=== PATIENT | male | born 1985 | race Caucasian/White ===

== ENCOUNTER 2016-04-12 15:20 | Emergency (ER) | payer OTHER ==
[2016-04-12 15:35] VITALS: BP 126/74
[2016-04-12] MEDS ORDERED: Proparacaine 0.5% OPHTH.SOL* 15 ML BTL ONE (15:39)
[2016-04-12] MEDS ORDERED: Eye Irrigation Solution 30 ML BOTTLE ONE (15:39)
[2016-04-12] MEDS ORDERED: Fluorescein Sodium TOPICAL* 1 MG TEST ONE (15:39)
--- NOTE | 2016-04-12 15:43 | UC ---
Eye Complaint HPI - HPI Summary HPI Summary: complaint of left eye woke up this morning and his eye was stuck shut with discharger eye has turned red and ithcy eye feels slightly painful vision seems blurrier than usual denies any symptoms of URI - History of Current Complaint Chief Complaint: UCEye Stated Complaint: EYE COMPLAINT Time Seen by Provider: 04/12/16 15:23 Location of Injury: Conjunctiva Character: Dull Aggravating Factor(s): Nothing Alleviating Factor(s): Nothing Associated Signs And Symptoms: Positive: Drainage (Purulent) - Allergies/Home Medications Allergies/Adverse Reactions: Allergies Allergy/AdvReac Type Severity Reaction Status Date / Time Sulfa Antibiotics Allergy Anaphylatic Verified 04/12/16 15:27 Shock PMH/Surg Hx/FS Hx/Imm Hx Previously Healthy: Yes Endocrine History Of: Denies: Diabetes, Thyroid Disease Cardiovascular History Of: Denies: Cardiac Disorders, Hypertension Respiratory History Of: Denies: COPD, Asthma GI/ History Of: Denies: Gastroesophageal Reflux, Ulcer Psychological History Of: Reports: Anxiety - Surgical History Surgical History: Yes Surgery Procedure, Year, and Place: double mastectomy, ear tubes - Family History Known Family History: Positive: None, Unknown - unknown, pt is adopted., Cardiac Disease Negative: Diabetes - Social History Occupation: Employed Full-time Lives: With Family Alcohol Use: None Substance Use Type: None Substance Use Comment - Amount & Last Used: \\ Smoking Status (MU): Current Every Day Smoker Type: Cigarettes Amount Used/How Often: 1/2 PPD Household Exposure Type: Cigarettes Cessation Counseling: Patient Advised to Stop Review of Systems Constitutional: Negative Skin: Negative Eyes: Eye Redness ENT: Negative Respiratory: Negative Cardiovascular: Negative Gastrointestinal: Negative Genitourinary: Negative Motor: Negative Neurovascular: Negative Musculoskeletal: Negative Neurological: Negative Psychological: Negative All Other Systems Reviewed And Are Negative: Yes Physical Exam Triage Information Reviewed: Yes Appearance: No Pain Distress, Well-Nourished Vital Signs: Initial Vital Signs Temp 98.6 F 04/12/16 15:28 Pulse 80 04/12/16 15:28 Resp 18 04/12/16 15:28 BP 126/74 04/12/16 15:28 Pulse Ox 100 04/12/16 15:28 Vital Signs Reviewed: Yes Eyes: Positive: Conjunctiva Inflamed, Discharge, Other: - left eye ENT: Positive: Pharynx normal, TMs normal. Negative: Nasal congestion Neck: Positive: No Lymphadenopathy Respiratory: Positive: Lungs clear, Normal breath sounds, No respiratory distress Cardiovascular: Positive: RRR, No Murmur, Pulses Normal Neurological Exam: Normal Psychological Exam: Normal Skin Exam: Normal Procedures - Procedure Summary Procedure Summary: left eye observed under flouriscine - no foreign objects or abrasions observed Eye Complaint Course/Dx - Differential Dx/Diagnosis Differential Diagnosis/HQI/PQRI: Conjunctivitis, Corneal Abrasion Provider Diagnoses: conjunctivitis Discharge - Discharge Plan Condition: Stable Disposition: HOME Prescriptions: Ciprofloxacin 0.3% OPTH.MAURICIO* [Cipro 0.3% Opth*] 2 drop LEFT EYE Q4H #1 btl Patient Education Materials: Conjunctivitis (ED) Forms: *Work Release Referrals: Emily Hatfield PA [Primary Care Provider] - Additional Instructions: CONJUNCTIVITIS What is Conjunctivitis? Conjunctivitis is redness and swelling of the conjunctiva, the thin transparent layer that lines the inner eyelid and covers the white part of the eye. The three main types of conjunctivitis are infectious, allergic, and chemical. The infectious type, commonly called "pink eye," is caused by a contagious virus or by bacteria. Your body's allergies to pollen, cosmetics, animals or fabrics often bring on allergic conjunctivitis. Irritants like air pollution, noxious fumes and chlorine in swimming pools may produce the chemical form. Symptoms Might Include: More tearing Eye pain Redness in the eyes Gritty feeling in the eyes Itching of the eye Blurred vision Sensitivity to light Crusts that form on the eyelid overnight Treatment Recommendations: Use eye drops or ointment as directed. Do not rub or touch your eyes. Wash your hands frequently. Use cool compresses to relieve pain and itching. Prevention: Do not share eye make-up. Replace eye make-up frequently. Do not share towels, washcloths, etc. Do not share eye drops. Disinfect and handle contact lenses properly. Call Your Doctor or Return Here IF: Your symptoms worsen or do not improve in 3 to 4 days. You have problems with, or loss of, your vision. You have a significant increase in pain. You have any new symptoms that worry you.
== END 2016-04-12 16:11 | disposition home or self-care (01) ==
LOC: UCCORT 15:20
DX: H10.32 Unspecified acute conjunctivitis, left eye (principal); Z88.2 Allergy status to sulfonamides; F17.210 Nicotine dependence, cigarettes, uncomplicated
CPT/HCPCS: 99212; A9270-GY; G0463

== ENCOUNTER 2016-05-24 12:20 | Emergency (ER) | payer OTHER ==
[2016-05-24 12:35] VITALS: BP 128/74
--- NOTE | 2016-05-24 14:11 | RAD ---
HISTORY: Left fifth digit trauma COMPARISONS: None VIEWS: 3, Frontal, lateral, and oblique views of the fifth digit of the left foot FINDINGS: BONE DENSITY: Normal. BONES: There is no displaced fracture. JOINTS: There is no arthropathy. ALIGNMENT: There is no dislocation. SOFT TISSUES: Unremarkable. OTHER FINDINGS: None. IMPRESSION: NO ACUTE OSSEOUS INJURY. IF SYMPTOMS PERSIST, RECOMMEND REPEAT IMAGING.
--- NOTE | 2016-05-24 14:41 | UC ---
Lower Extremity/Ankle HPI - HPI Summary HPI Summary: LEFT PINKY-TOE INJURY, YESTERDAY STUBBED TOE AND PULLED A LITTLE BIT OF TOE NAIL OFF WITH INJURY. PAIN CONTINUES - History of Current Complaint Chief Complaint: UCLowerExtremity Stated Complaint: TOE INJURY Time Seen by Provider: 05/24/16 13:32 Hx Obtained From: Patient Onset/Duration: Sudden Onset, Lasting Days, Still Present Severity Initially: Moderate Severity Currently: Moderate Aggravating Factor(s): Standing, Ambulation Alleviating Factor(s): Rest Able to Bear Weight: Yes - Risk Factors Gout Risk Factors: Negative DVT Risk Factors: Negative Septic Arthritis Risk Factor: Negative - Allergies/Home Medications Allergies/Adverse Reactions: Allergies Allergy/AdvReac Type Severity Reaction Status Date / Time Sulfa Antibiotics Allergy Anaphylatic Verified 04/12/16 15:27 Shock PMH/Surg Hx/FS Hx/Imm Hx Previously Healthy: Yes Endocrine History Of: Denies: Diabetes, Thyroid Disease Cardiovascular History Of: Denies: Cardiac Disorders, Hypertension Respiratory History Of: Denies: COPD, Asthma GI/ History Of: Denies: Gastroesophageal Reflux, Ulcer Psychological History Of: Reports: Anxiety - Surgical History Surgical History: Yes Surgery Procedure, Year, and Place: double mastectomy, ear tubes - Family History Known Family History: Positive: None, Unknown - unknown, pt is adopted., Cardiac Disease Negative: Diabetes - Social History Occupation: Employed Full-time Lives: With Family Alcohol Use: None Substance Use Type: None Substance Use Comment - Amount & Last Used: \ Smoking Status (MU): Current Every Day Smoker Type: Cigarettes Amount Used/How Often: 1/2 PPD Household Exposure Type: Cigarettes Cessation Counseling: Patient Advised to Stop Review of Systems Constitutional: Negative Skin: Negative Eyes: Negative ENT: Negative Respiratory: Negative Cardiovascular: Negative Gastrointestinal: Negative Genitourinary: Negative Motor: Negative Neurovascular: Negative Musculoskeletal: Arthralgia, Myalgia Neurological: Negative Psychological: Negative All Other Systems Reviewed And Are Negative: Yes Physical Exam Triage Information Reviewed: Yes Appearance: Well-Appearing, Well-Nourished, Pain Distress - MILD Vital Signs: Initial Vital Signs Temp 98.3 F 05/24/16 12:33 Pulse 78 05/24/16 12:33 Resp 16 05/24/16 12:33 BP 128/74 05/24/16 12:33 Pulse Ox 100 05/24/16 12:33 Vital Signs Reviewed: Yes Eye Exam: Normal ENT Exam: Normal ENT: Positive: Normal ENT inspection, Hearing grossly normal, Pharynx normal, TMs normal Dental Exam: Normal Neck exam: Normal Neck: Positive: Supple, Nontender, No Lymphadenopathy Respiratory Exam: Normal Respiratory: Positive: Chest non-tender, Lungs clear, Normal breath sounds, No respiratory distress, No accessory muscle use Cardiovascular Exam: Normal Cardiovascular: Positive: RRR, No Murmur, Pulses Normal Abdominal Exam: Normal Abdomen Description: Positive: Nontender, No Organomegaly Musculoskeletal Exam: Normal Musculoskeletal: Positive: Strength Intact, ROM Intact Neurological Exam: Normal Psychological Exam: Normal Skin: Positive: Other - LEFT 5TH TOE PARTIAL NAIL AVULSION TO MEDIAL ASPECT Lower Extremity Course/Dx - Differential Dx/Diagnosis Differential Diagnosis/HQI/PQRI: Fracture (Closed), Fracture (Open), Sprain, Strain Provider Diagnoses: LEFT FIFTH TOE PARTIAL NAIL AVULSION. LEFT FIFTH TOE CONTUSION/SPRAIN Discharge - Discharge Plan Condition: Stable Disposition: HOME Patient Education Materials: Foot Contusion (ED), Nail Avulsion (ED) Referrals: Emily Hatfield PA [Primary Care Provider] -
== END 2016-05-24 14:50 | disposition home or self-care (01) ==
LOC: UCEAST 12:20
DX: S90.222A Contusion of left lesser toe(s) with damage to nail, initial encounter (principal); W22.8XXA Striking against or struck by other objects, initial encounter; Y93.9 Activity, unspecified; Y92.9 Unspecified place or not applicable; Z88.2 Allergy status to sulfonamides; F17.210 Nicotine dependence, cigarettes, uncomplicated
CPT/HCPCS: 99212; G0463

== ENCOUNTER 2016-06-29 22:01 | Emergency (ER) | payer OTHER ==
[2016-06-29 22:07] VITALS: BP 138/74
[2016-06-29] MEDS ORDERED: Ibuprofen TAB* 600 MG PO ONE (22:17)
[2016-06-29] MEDS ORDERED: Cyclobenzaprine TAB* 10 MG PO ONE (22:18)
--- NOTE | 2016-06-29 22:29 | UC ---
Back Pain HPI - HPI Summary HPI Summary: 31 yo was at work today Holding a pot of oil was startled wrenched back pain right lower back radiates to right lateral knee radiates to right scapula no bowel or bladder dysfunction happened 45 minutes [employer] - History of Current Complaint Chief Complaint: UCBackPain Stated Complaint: BACK INJURY Time Seen by Provider: 06/29/16 22:10 Hx Obtained From: Patient Onset/Duration: Gradual Onset Timing: Lasting Minutes Severity Initially: Severe Severity Currently: Moderate Pain Intensity: 6 Pain Scale Used: 0-10 Numeric Back Pain: Is Diffuse Character: Aching, Throbbing, Spasmodic Aggravating: Movement, Lifting, Bending Alleviating: Rest Associated Signs And Symptoms: Positive: Negative Related History: Occupational Injury - Allergies/Home Medications Allergies/Adverse Reactions: Allergies Allergy/AdvReac Type Severity Reaction Status Date / Time Sulfa Antibiotics Allergy Anaphylatic Verified 06/29/16 22:08 Shock PMH/Surg Hx/FS Hx/Imm Hx Previously Healthy: Yes Endocrine History Of: Denies: Diabetes, Thyroid Disease Cardiovascular History Of: Denies: Cardiac Disorders, Hypertension Respiratory History Of: Denies: COPD, Asthma GI/ History Of: Denies: Gastroesophageal Reflux, Ulcer Psychological History Of: Reports: Anxiety - Surgical History Surgical History: Yes Surgery Procedure, Year, and Place: double mastectomy, ear tubes - Family History Known Family History: Positive: None, Unknown - unknown, pt is adopted., Cardiac Disease Negative: Diabetes - Social History Alcohol Use: None Substance Use Type: None Substance Use Comment - Amount & Last Used: \ Smoking Status (MU): Current Every Day Smoker Type: Cigarettes Amount Used/How Often: 1/2 PPD Household Exposure Type: Cigarettes Review of Systems Constitutional: Negative Skin: Negative Eyes: Negative ENT: Negative Respiratory: Negative Cardiovascular: Negative Gastrointestinal: Negative Genitourinary: Negative Motor: Negative Neurovascular: Negative Musculoskeletal: Myalgia Neurological: Negative Psychological: Negative All Other Systems Reviewed And Are Negative: Yes Physical Exam Triage Information Reviewed: Yes Appearance: Well-Appearing, No Pain Distress, Well-Nourished Vital Signs: Initial Vital Signs Temp 98.5 F 06/29/16 22:03 Pulse 82 06/29/16 22:03 Resp 18 06/29/16 22:03 BP 138/74 06/29/16 22:03 Pulse Ox 98 06/29/16 22:03 Vital Signs Reviewed: Yes Eyes: Positive: Conjunctiva Clear ENT: Positive: Hearing grossly normal. Negative: Nasal congestion, Nasal drainage, Trismus, Muffled/hoarse voice Neck: Positive: Supple, Nontender Respiratory: Positive: Lungs clear, Normal breath sounds, No respiratory distress Cardiovascular: Positive: RRR, No Murmur, Pulses Normal Musculoskeletal: Positive: Strength Intact, ROM Intact Neurological: Positive: Alert, Other: - DTRs equal/(-) SLR, limited ROM Psychological Exam: Normal Skin Exam: Normal Back Pain Course/Dx - Differential Dx/Diagnosis Provider Diagnoses: acute lumbar strain with non discogenic sciatica Discharge - Discharge Plan Condition: Stable Disposition: HOME Prescriptions: Cyclobenzaprine TAB* [Flexeril TAB*] 5 mg PO TID PRN #21 tab PRN Reason: Spasms Ibuprofen TAB* [Motrin TAB*] 600 mg PO QID PRN #40 tab PRN Reason: Pain Patient Education Materials: Low Back Strain (ED) Forms: *Work Release Referrals: Emily Hatfield PA [Primary Care Provider] - Additional Instructions: recheck in 5-7 days if not better recheck sooner for new or worsening symptoms Images Front/Back of Body, Lg ([place]): 1 - hurts here 2 - radiates here 3 - radiates here
== END 2016-06-29 22:30 | disposition home or self-care (01) ==
LOC: UCEAST 22:01
DX: S39.012A Strain of muscle, fascia and tendon of lower back, initial encounter (principal); X50.1XXA Overexertion from prolonged static or awkward postures, initial encounter; Y93.89 Activity, other specified; Y92.89 Other specified places as the place of occurrence of the external cause; Y99.0 Civilian activity done for income or pay; Z88.2 Allergy status to sulfonamides; F17.210 Nicotine dependence, cigarettes, uncomplicated
CPT/HCPCS: 99212; A9270-GY; G0463

== ENCOUNTER 2016-07-05 02:02 | Emergency (ER) | payer OTHER ==
--- NOTE | 2016-07-05 03:48 | ED ---
Samy Mandujano Salem, scribed for Jorge Chi MD on 07/05/16 at 0242 . Breast Complaint - HPI Summary HPI Summary: Patient is a 31 y/o male who presents to the ED with a lump on the right side of his chest since two months ago. He reports the lump has grown in size since yesterday. He states he underwent surgery in December 2015 and has made his surgeon aware of the lump. However, he cannot see her until the end of August. He has no other complaints. - History of Current Complaint Hx Obtained From: Patient Breast Chief Complaint: Palpable Lump Onset/Duration: Started Weeks Ago, Still Present Timing: Constant Breast Pain Aggravating Factors: Nothing Breast Pain Alleviating Factors: Nothing - Allergy/Home Medications Allergies/Adverse Reactions: Allergies Allergy/AdvReac Type Severity Reaction Status Date / Time Sulfa Antibiotics Allergy Anaphylatic Verified 06/29/16 22:08 Shock PMH/Surg Hx/FS Hx/Imm Hx Endocrine/Hematology History: Denies: Hx Diabetes, Hx Thyroid Disease Cardiovascular History: Reports: Hx Atrial Fibrillation - Patient states had afib 2 times resolved when he stopped using alcohol Denies: Hx Hypertension Respiratory History: Denies: Hx Asthma, Hx Chronic Obstructive Pulmonary Disease (COPD) GI History: Denies: Hx Ulcer Psychiatric History: Reports: Hx Anxiety - Surgical History Surgery Procedure, Year, and Place: double mastectomy, ear tubes Infectious Disease History: No Infectious Disease History: Denies: Hx Hepatitis, Hx Human Immunodeficiency Virus (HIV), Traveled Outside the [place] in Last 30 Days - Family History Known Family History: Positive: Cardiac Disease Negative: Diabetes - Social History Alcohol Use: None Hx Substance Use: No Substance Use Type: Reports: None Substance Use Comment - Amount & Last Used: \ Hx Tobacco Use: Yes Smoking Status (MU): Current Every Day Smoker Type: Cigarettes Amount Used/How Often: 1/2 PPD Review of Systems Negative: Fever Positive: Other - Lump on the right side of his chest. All Other Systems Reviewed And Are Negative: Yes Physical Exam Triage Information Reviewed: Yes Vital Signs On Initial Exam: Initial Vitals Temp Pulse Resp BP Pulse Ox 98.1 F 92 16 148/81 100 07/05/16 02:03 07/05/16 02:03 07/05/16 02:03 07/05/16 02:03 07/05/16 02:03 Vital Signs Reviewed: Yes Appearance: Positive: Well-Appearing, Well-Nourished Skin: Positive: Warm Head/Face: Positive: Normal Head/Face Inspection Eyes: Positive: ARMANDO ENT: Positive: Hearing grossly normal Neck: Positive: Supple Respiratory/Lung Sounds: Positive: Breath Sounds Present, Other - area of swelling rt surgical scar area ant chest wall, noin tender Cardiovascular: Positive: RRR Abdomen Description: Positive: Nontender, No Organomegaly, Soft Bowel Sounds: Positive: Present Musculoskeletal: Positive: Strength/ROM Intact Neurological: Positive: Sensory/Motor Intact, Alert, Oriented to Person Place, Time - Marco Coma Scale Coma Scale Total: 15 Diagnostics - Vital Signs Vital Signs Temp Pulse Resp BP Pulse Ox 07/05/16 02:03 98.1 F 92 16 148/81 100 - Laboratory Lab Statement: Any lab studies that have been ordered have been reviewed, and results considered in the medical decision making process. - CT CHEST CT Interpretation Completed By: Radiologist - 3.2 x 2.7 x 1.5 cm hypodense mass in right anterior chest wall subcutaneous tissues abutting right pectorals muscle, possibly a phlegmon/developing abscess versus chronic hematoma versus neoplasm. Advise follow-up. Haziness of adjacent subcutaneous fat. No axillary lymphadenopathy. No pneumonia or pleural effusions. Re-Evaluation - Re-Evaluation First Eval Re-Evaluation Time: 03:48 Comment: Informed pt of imaging results and of plan to DC. Breast Pain Course/Dx - Course Course Of Treatment: 31 y/o male presents with a lump on the right side of his chest. CT reveals, per radiologist reading, 3.2 x 2.7 x 1.5 cm hypodense mass in right anterior chest wall subcutaneous tissues abutting right pectorals muscle, possibly a phlegmon/developing abscess versus chronic hematoma versus neoplasm. Advise follow-up. Haziness of adjacent subcutaneous fat. No axillary lymphadenopathy. No pneumonia or pleural effusions. Pt will be DC with referral to his surgeon. - Diagnoses Provider Diagnoses: Chest wall mass Discharge - Discharge Plan Condition: Stable Disposition: HOME Patient Education Materials: Breast Mass (ED) Referrals: Emily Hatfield PA [Primary Care Provider] - Additional Instructions: Follow up with your surgeon. The documentation as recorded by the Samy rodriguez Salem accurately reflects the service I personally performed and the decisions made by , Jorge Chi MD.
[2016-07-05 04:07] VITALS: BP 129/65
--- NOTE | 2016-07-05 09:54 | RAD ---
Indication: Chest wall mass. CT of the chest was performed without IV contrast. Coronal and sagittal reconstructed images were obtained. There is no evidence of mediastinal or hilar adenopathy. The inferior thyroid lobes are unremarkable. The heart is of normal size without evidence of pericardial effusion. The trachea and major bronchi appear patent. The lung rdz demonstrate no evidence of alveolar consolidation. In the right chest wall, there is a mass just adjacent to the pectoralis muscle measuring 3.2 x 2.7 x 1.5 cm. The possibility of a fluid component should be considered. This may represent an abscess or chronic hematoma. Neoplastic process is not totally excluded. Follow-up and possible tissue sampling could be performed. The left chest wall is otherwise unremarkable. The visualized abdominal organs are otherwise unremarkable. IMPRESSION: No pulmonary lesions are identified. There is a chest wall mass in the right chest measuring up to 3.2 cm with likely a fluid component and this may represent an abscess. Follow-up exam is suggested.
== END 2016-07-05 04:06 | disposition home or self-care (01) ==
LOC: ED 02:02
DX: R22.2 Localized swelling, mass and lump, trunk (principal); F17.210 Nicotine dependence, cigarettes, uncomplicated
CPT/HCPCS: 71250; 99282

== ENCOUNTER 2016-07-19 13:33 | Emergency (ER) | payer OTHER ==
[2016-07-19 13:48] VITALS: BP 123/59
--- NOTE | 2016-07-19 14:54 | UC ---
Throat Pain/Nasal Jovanny HPI - HPI Summary HPI Summary: TWO DAYS OF RUNNY NOSE COUGH FEVERS CHILLS SORE THROAT RUNNY NOSE. - History of Current Complaint Chief Complaint: UCRespiratory Stated Complaint: FEVER SORE THROAT SOB Time Seen by Provider: 07/19/16 13:44 Hx Obtained From: Patient Onset/Duration: Gradual Onset, Lasting Days, Still Present Severity: Moderate Cough: Nonproductive Associated Signs & Symptoms: Positive: Hoarseness, Sinus Discomfort, Nasal Discharge, Fever - Epiglottits Risk Factors Epiglottis Risk Factors: Negative - Allergies/Home Medications Allergies/Adverse Reactions: Allergies Allergy/AdvReac Type Severity Reaction Status Date / Time Sulfa Antibiotics Allergy Anaphylatic Verified 06/29/16 22:08 Shock PMH/Surg Hx/FS Hx/Imm Hx Previously Healthy: Yes Endocrine History Of: Denies: Diabetes, Thyroid Disease Cardiovascular History Of: Denies: Cardiac Disorders, Hypertension Respiratory History Of: Denies: COPD, Asthma GI/ History Of: Denies: Gastroesophageal Reflux, Ulcer Psychological History Of: Reports: Anxiety - Surgical History Surgical History: Yes Surgery Procedure, Year, and Place: double mastectomy, ear tubes - Family History Known Family History: Positive: None, Unknown - unknown, pt is adopted., Cardiac Disease Negative: Diabetes - Social History Occupation: Employed Full-time Lives: With Family Alcohol Use: None Substance Use Type: None Substance Use Comment - Amount & Last Used: \ Smoking Status (MU): Current Every Day Smoker Type: Cigarettes Amount Used/How Often: 1/2 PPD Household Exposure Type: Cigarettes Cessation Counseling: Patient Advised to Stop Review of Systems Constitutional: Fever, Chills Skin: Negative Eyes: Negative ENT: Sore Throat, Nasal Discharge Respiratory: Cough Cardiovascular: Negative Gastrointestinal: Negative Genitourinary: Negative Motor: Negative Neurovascular: Negative Musculoskeletal: Myalgia Neurological: Negative Psychological: Negative All Other Systems Reviewed And Are Negative: Yes Physical Exam Triage Information Reviewed: Yes Appearance: No Pain Distress, Well-Nourished, Ill-Appearing - MILDLY Vital Signs: Initial Vital Signs Temp 98.1 F 07/19/16 13:44 Pulse 76 07/19/16 13:44 Resp 20 07/19/16 13:44 BP 123/59 07/19/16 13:44 Pulse Ox 100 07/19/16 13:44 Vital Signs Reviewed: Yes Eye Exam: Normal ENT: Positive: Normal ENT inspection, Hearing grossly normal, Pharyngeal erythema, TMs normal Dental Exam: Normal Neck exam: Normal Neck: Positive: Supple, Nontender, No Lymphadenopathy. Negative: Nuchal Rigidity, Tenderness @, Enlarged Nodes @ Respiratory: Positive: Chest non-tender, Lungs clear, Normal breath sounds, No respiratory distress, No accessory muscle use, Wheezing - CURRENTLY RESOLVED, PATIENT STATES WHEEZING AT NIGHT Cardiovascular Exam: Normal Cardiovascular: Positive: RRR, No Murmur, Pulses Normal, Brisk Capillary Refill Abdominal Exam: Normal Abdomen Description: Positive: Nontender, No Organomegaly. Negative: CVA Tenderness (R), CVA Tenderness (L), Guarding Musculoskeletal Exam: Normal Musculoskeletal: Positive: Strength Intact, ROM Intact Neurological Exam: Normal Psychological Exam: Normal Skin Exam: Normal Throat Pain/Nasal Course/Dx - Differential Dx/Diagnosis Differential Diagnosis/HQI/PQRI: Influenza, Pharyngitis, Sinusitis, URI Provider Diagnoses: UPPER RESPIRATORY INFECTION. VIRAL SYNDROME Discharge - Discharge Plan Condition: Stable Disposition: HOME Prescriptions: Albuterol HFA INHALER* [Ventolin HFA Inhaler*] 1 - 2 puff INH Q6H PRN #1 mdi PRN Reason: Wheezing Benzonatate CAP* [Tessalon 100 MG CAP*] 100 mg PO TID PRN #12 cap PRN Reason: Cough Patient Education Materials: Upper Respiratory Infection (ED), Viral Syndrome ( ED) Forms: *Work Release Referrals: Emily Hatfield PA [Primary Care Provider] -
== END 2016-07-19 14:59 | disposition home or self-care (01) ==
LOC: UCEAST 13:33
DX: J06.9 Acute upper respiratory infection, unspecified (principal); B34.9 Viral infection, unspecified; F41.9 Anxiety disorder, unspecified; Z88.2 Allergy status to sulfonamides; F17.210 Nicotine dependence, cigarettes, uncomplicated
CPT/HCPCS: 87502; 87651; 99212; G0463

== ENCOUNTER 2016-11-12 13:26 | Emergency (ER) | payer BC, OTHER ==
--- NOTE | 2016-11-12 14:09 | UC ---
Knee Pain HPI - HPI Summary HPI Summary: 31 Y/O male being seen for C/O R knee pain x 2 days after moving kitchen equipment. Pain radiates to R hip. Denies other injury. - History of Current Complaint Chief Complaint: UCLowerExtremity Stated Complaint: HIP PAIN Time Seen by Provider: 11/12/16 13:51 Hx Obtained From: Patient Onset/Duration: Gradual Onset Severity Initially: Mild Severity Currently: Mild Pain Intensity: 4 Pain Scale Used: 0-10 Numeric Character: Aching Aggravating Factor(s): Movement Alleviating Factor(s): Rest Associated Signs And Symptoms: Positive: Negative Able to Bear Weight: Yes - Risk Factors Septic Arthritis Risk Factor: Negative Gout Risk Factor: Negative - Allergies/Home Medications Allergies/Adverse Reactions: Allergies Allergy/AdvReac Type Severity Reaction Status Date / Time Sulfa Antibiotics Allergy Anaphylatic Verified 07/22/16 16:30 Shock PMH/Surg Hx/FS Hx/Imm Hx Previously Healthy: Yes - Surgical History Surgical History: Yes Surgery Procedure, Year, and Place: double mastectomy, ear tubes - Family History Known Family History: Positive: None, Unknown - unknown, pt is adopted., Cardiac Disease Negative: Diabetes - Social History Alcohol Use: None Substance Use Type: None Substance Use Comment - Amount & Last Used: \ Smoking Status (MU): Light Every Day Tobacco Smoker Type: Cigarettes Amount Used/How Often: <1/2 PPD Household Exposure Type: Cigarettes Review of Systems Constitutional: Negative Skin: Negative Eyes: Negative ENT: Negative Respiratory: Negative Cardiovascular: Negative Gastrointestinal: Negative Genitourinary: Negative Motor: Negative Neurovascular: Negative Musculoskeletal: Negative Neurological: Negative Psychological: Negative All Other Systems Reviewed And Are Negative: Yes Physical Exam Triage Information Reviewed: Yes Appearance: Well-Appearing Vital Signs: Initial Vital Signs Temp 98.4 F 11/12/16 13:27 Pulse 80 11/12/16 13:27 Resp 18 11/12/16 13:27 BP 127/65 11/12/16 13:27 Pulse Ox 99 11/12/16 13:27 Vital Signs Reviewed: Yes Neck exam: Normal Neck: Positive: Supple Respiratory Exam: Normal Respiratory: Positive: Lungs clear Cardiovascular Exam: Normal Cardiovascular: Positive: RRR Abdominal Exam: Normal Abdomen Description: Positive: Nontender Musculoskeletal Exam: Normal Musculoskeletal: Positive: ROM Intact Neurological Exam: Normal Psychological Exam: Normal Skin Exam: Normal Knee Pain Course/Dx - Differential Dx/Diagnosis Differential Diagnosis/HQI/PQRI: Contusion, Infection, Sprain, Strain Provider Diagnoses: Knee Sprain Discharge - Discharge Plan Condition: Stable Disposition: HOME Patient Education Materials: Knee Sprain (ED) Referrals: Emily Hatfield PA [Primary Care Provider] - Duglas Torres MD [Medical Doctor] - Additional Instructions: Rest knee and apply ice /heat as needed for pain. May take Ibuprofen as needed for pain / inflammation. Do not exceed recommended dose. Follow up with Dr Torres if symptoms persist. May return to urgent care for worsening pain / swelling as needed.
--- NOTE | 2016-11-12 14:42 | RAD ---
Indication: Right knee pain. 4 views of the right knee demonstrates joint space to be well preserved. No joint effusion is noted. No fracture is identified. IMPRESSION: Unremarkable right knee.
[2016-11-12 15:42] VITALS: BP 108/49
== END 2016-11-12 15:48 | disposition home or self-care (01) ==
LOC: UCEAST 13:26
DX: S83.91XA Sprain of unspecified site of right knee, initial encounter (principal); X50.0XXA Overexertion from strenuous movement or load, initial encounter; Z88.2 Allergy status to sulfonamides; Z90.13 Acquired absence of bilateral breasts and nipples; F17.210 Nicotine dependence, cigarettes, uncomplicated
CPT/HCPCS: 99211; G0463

== ENCOUNTER 2017-02-10 18:01 | Emergency (ER) | payer BC ==
[2017-02-10 18:17] VITALS: BP 134/83
--- NOTE | 2017-02-10 18:41 | RAD ---
INDICATION: Trauma headache and vomiting. COMPARISON: Comparison is made with a prior CT of the brain from November 28, 2015. TECHNIQUE: Contiguous axial sections of the brain were obtained from the skull base to the vertex without contrast. FINDINGS: The ventricles, cisterns and sulci are within normal limits in size. There is mild prominence of the inferior aspect of the fourth ventricle on the right side which is unchanged from the prior study. No significant focal abnormality or mass effect is seen. There is no evidence for hemorrhage. No significant focal osseous abnormality is seen. The visualized portion of the paranasal sinuses and mastoid air cells appear clear. IMPRESSION: NO EVIDENCE FOR ACUTE INTRACRANIAL ABNORMALITY.
--- NOTE | 2017-02-10 18:48 | RAD ---
INDICATION: Trauma. COMPARISON: There are no prior studies available for comparison. TECHNIQUE: Contiguous axial sections were obtained from the skull base through the T1 vertebra. Images were reconstructed in the sagittal and coronal planes. FINDINGS: The vertebra are in normal alignment. No prevertebral soft tissue swelling or fracture is seen. Disc spaces appear maintained. There is no evidence for spinal canal or neural foraminal narrowing. IMPRESSION: NO EVIDENCE FOR FRACTURE OR SUBLUXATION.
[2017-02-10] MEDS ORDERED: Ondansetron ODT TAB* 4 MG PO ONE (18:54)
--- NOTE | 2017-02-10 19:03 | RAD ---
INDICATION: Facial trauma, teeth injury. COMPARISON: There are no prior studies available for comparison. TECHNIQUE: Contiguous axial sections of the axial images of the facial bones were obtained and reconstructed in the coronal and sagittal planes. FINDINGS: The good of the orbits and maxillary sinuses appear intact. The zygomatic arches appear intact. There is no evidence for a fracture of the mandible. The nasal bones appear intact. There is mild deviation of the nasal septum toward the left side. The pterygoid plates appear intact. There are nodular densities in the right maxillary sinus measuring up to 1.8 cm in size most consistent with mucous retention cysts or polyps. There is also opacification of a portion of the sphenoid sinus on the left side. The paranasal sinuses and mastoid air cells otherwise appear clear. IMPRESSION: NO EVIDENCE OF FRACTURE.
--- NOTE | 2017-02-10 19:45 | RAD ---
INDICATION: Right shoulder injury. TECHNIQUE: 4 views of the right shoulder were obtained. FINDINGS: The bones are in normal alignment. No fracture is seen. Joint spaces appear maintained. IMPRESSION: NO EVIDENCE OF FRACTURE.
[2017-02-10 19:59] LABS: Hematocrit 47 % (42-52); Hemoglobin 15.9 g/dl (14.0-18.0); Mean Corpuscular HGB Conc 34 g/dl (31-36); Mean Corpuscular Hemoglobin 30 pg (27-31); Mean Corpuscular Volume 89 fL (80-94); Mean Platelet Volume 9 um3 (7.4-10.4); Red Blood Count 5.27 10^6/ul (4.0-5.4); Red Cell Distribution Width 14 % (10.5-15); White Blood Count 3.5 10^3/ul (3.5-10.8)
[2017-02-10 20:43] LABS: Albumin 4.3 g/dL (3.2-5.2); BUN/Creatinine Ratio 12.5 (8-20); EGFR African American 107.8 (>60); EGFR Non-African American 83.9 (>60); Globulin 2.8 g/dL (2-4); Potassium 4.4 mmol/L (3.5-5.0); Total Bilirubin 0.5 mg/dL (0.2-1.0); Total Protein 7.1 g/dL (6.4-8.9)
--- NOTE | 2017-02-20 22:10 | ED ---
Moisés Mandujano Jason, scribed for Kyle Cantor MD on 02/10/17 at 1915 . Adult Trauma - HPI Summary HPI Summary: This patient is a 32 year old M presenting to [facility] with a chief complaint of Physical trauma since 1 hour ago today. The patient reports that he tripped over a neighbors plant at the top of his stairs and fell down 5 steps, and states It feels like when you drink too much and youre trying to sleep and get really dizzy. It feels like I cant focus. The patient rates the pain 10/10 in severity. Symptoms aggravated by nothing. Symptoms alleviated by nothing. Patient reports dizziness (room spinning), dental pain, neck pain, head pain, right shoulder pain ear ringing, and loss of two teeth. Patient denies LOC - History of Current Complaint Chief Complaint: EDTraumaMultiple Stated Complaint: FALL/HEAD,SHOULDER INJURY Hx Obtained From: Patient Mechanism of Injury: Fall - down 5 steps on a flight of stairs Ambulatory at the Scene: Yes Loss of Consciousness: no loss of consciousness Force: Direct Onset/Duration: Started Hours Ago - 1 hour ago Onset of Pain: Immediate Onset Severity: Severe Current Severity: Severe Pain Intensity: 10 Pain Scale Used: 0-10 Numeric Location: Head, Extremities - Right shoulder Associated Signs & Symptoms: Positive: Other: - dizziness (room spinning), dental pain, neck pain, head pain, right shoulder pain, ear ringing, and loss of two teeth. Patient denies loss of consciousness - Allergy/Home Medications Allergies/Adverse Reactions: Allergies Allergy/AdvReac Type Severity Reaction Status Date / Time Sulfa Antibiotics Allergy Anaphylatic Verified 02/20/17 14:45 Shock PMH/Surg Hx/FS Hx/Imm Hx Previously Healthy: No Endocrine/Hematology History: Denies: Hx Diabetes, Hx Thyroid Disease Cardiovascular History: Reports: Hx Atrial Fibrillation - Patient states had afib 2 times resolved when he stopped using alcohol Denies: Hx Hypertension Respiratory History: Denies: Hx Asthma, Hx Chronic Obstructive Pulmonary Disease (COPD) GI History: Denies: Hx Ulcer Psychiatric History: Reports: Hx Anxiety - Surgical History Surgery Procedure, Year, and Place: double mastectomy, ear tubes Infectious Disease History: No Infectious Disease History: Denies: Hx Clostridium Difficile, Hx Hepatitis, Hx Human Immunodeficiency Virus (HIV), Traveled Outside the [place] in Last 30 Days - Family History Known Family History: Positive: Unknown - unknown, pt is adopted., Cardiac Disease Negative: Diabetes - Social History Occupation: Employed Full-time Lives: Alone Alcohol Use: None Hx Substance Use: No Substance Use Type: Reports: None Substance Use Comment - Amount & Last Used: \ Hx Tobacco Use: Yes Smoking Status (MU): Light Every Day Tobacco Smoker Type: Cigarettes Amount Used/How Often: <1/2 PPD Review of Systems Negative: Fever Positive: Dental Pain - Loss of two teeth, Other - Ear ringing Positive: Other - Neck pain, right shoulder pain Neurological: Negative - loss of consciousness, Other - Dizziness (room-spinning ), Head pain All Other Systems Reviewed And Are Negative: Yes Physical Exam - Summary Physical Exam Summary: Appearance: Well-appearing, Well-nourished Skin: Warm, Dry, No rash Eyes: Normal, PERRL, EOMI, sclera anicteric ENT: Normal Neck: Supple, nontender Respiratory: Clear to auscultation Cardiovascular: S1, S2, no murmur, no rub, no gallop Abdomen: Soft, nontender, no organomegaly Bowel sounds: Present Musculoskeletal: Normal, Strength/ROM Intact, no edema, pulses symmetrical Neurological: Normal, A&Ox3, cranial nerves 2-12 wnl, follows commands, gait not tested, sensation intact to pin and light touch Psychiatric: affect normal, behavior appropriate, dressed appropriately, judgment intact Triage Information Reviewed: Yes Vital Signs On Initial Exam: Initial Vitals Temp Pulse Resp BP Pulse Ox 98.7 F 80 19 134/83 100 02/10/17 18:13 02/10/17 18:13 02/10/17 18:13 02/10/17 18:13 02/10/17 18:13 Vital Signs Reviewed: Yes Diagnostics - Vital Signs Vital Signs Temp Pulse Resp BP Pulse Ox 02/10/17 18:13 98.7 F 80 19 134/83 100 - Laboratory Lab Results: Lab Results 02/10/17 02/10/17 Range/Units 19:46 19:46 WBC 3.5 (3.5-10.8) 10^3/ul RBC 5.27 (4.0-5.4) 10^6/ul Hgb 15.9 (14.0-18.0) g/dl Hct 47 (42-52) % MCV 89 (80-94) fL MCH 30 (27-31) pg MCHC 34 (31-36) g/dl RDW 14 (10.5-15) % Plt Count 192 (150-450) 10^3/ul MPV 9 (7.4-10.4) um3 Neut % (Auto) 56.3 (38-83) % Lymph % (Auto) 31.8 (25-47) % [place] % (Auto) 9.8 H (1-9) % Eos % (Auto) 0.9 (0-6) % Baso % (Auto) 1.2 (0-2) % Absolute Neuts (auto) 2.0 (1.5-7.7) 10^3/ul Absolute Lymphs (auto) 1.1 (1.0-4.8) 10^3/ul Absolute Monos (auto) 0.3 (0-0.8) 10^3/ul Absolute Eos (auto) 0 (0-0.6) 10^3/ul Absolute Basos (auto) 0 (0-0.2) 10^3/ul Absolute Nucleated RBC 0 10^3/ul Nucleated RBC % 0 Sodium 135 (133-145) mmol/L Potassium 4.4 (3.5-5.0) mmol/L Chloride 105 (101-111) mmol/L Carbon Dioxide 26 (22-32) mmol/L Anion Gap 4 (2-11) mmol/L BUN 13 (6-24) mg/dL Creatinine 1.04 (0.67-1.17) mg/dL Est GFR ( Amer) 107.8 (>60) Est GFR (Non-Af Amer) 83.9 (>60) BUN/Creatinine Ratio 12.5 (8-20) Glucose 101 H (70-100) mg/dL Calcium 10.0 (8.6-10.3) mg/dL Total Bilirubin 0.50 (0.2-1.0) mg/dL AST 25 (13-39) U/L ALT 24 (7-52) U/L Alkaline Phosphatase 60 (34-104) U/L Total Protein 7.1 (6.4-8.9) g/dL Albumin 4.3 (3.2-5.2) g/dL Globulin 2.8 (2-4) g/dL Albumin/Globulin Ratio 1.5 (1-3) Result Diagrams: 02/10/17 19:46 02/10/17 19:46 Lab Statement: Any lab studies that have been ordered have been reviewed, and results considered in the medical decision making process. - Radiology Shoulder x-ray Radiology Interpretation Completed By: Radiologist - NO EVIDENCE OF FRACTURE. ED physician has reviewed this radiology report and agrees. - CT maxillofacial CT Interpretation Completed By: Radiologist - NO EVIDENCE OF FRACTURE. ED physician has reviewed this radiology report and agrees. Cervical spine CT Interpretation Completed By: Radiologist - NO EVIDENCE FOR FRACTURE OR SUBLUXATION. ED physician has reviewed this radiology report and agrees. Brain CT Interpretation Completed By: Radiologist - NO EVIDENCE FOR ACUTE INTRACRANIAL ABNORMALITY. ED physician has reviewed this radiology report and agrees. Re-Evaluation - Re-Evaluation First Eval Re-Evaluation Time: 19:30 Change: Improved - patient is experienced vertigo upon turning left. Pt has right shoulder sprain and will be discharged. Adult Trauma Course/Dx - Course Course Of Treatment: This patient is a 32 year old M presenting to [facility] with a chief complaint of Physical trauma since 1 hour ago today. The patient reports that he tripped over a neighbors plant at the top of his stairs and fell down 5 steps, and states It feels like when you drink too much and youre trying to sleep and get really dizzy. It feels like I cant focus. The patient rates the pain 10/10 in severity. Symptoms aggravated by nothing. Symptoms alleviated by nothing. Patient reports dizziness (room spinning), dental pain, neck pain, head pain, right shoulder pain ear ringing, and loss of two teeth. Patient denies LOC Assessment/Plan: Maxillofacial CT reveals NO EVIDENCE OF FRACTURE. Cervical Spine CT reveals NO EVIDENCE FOR FRACTURE OR SUBLUXATION. Brain CT reveals NO EVIDENCE FOR ACUTE INTRACRANIAL ABNORMALITY. Shoulder X-ray reveals NO EVIDENCE OF FRACTURE. Dx of concussion, positional vertigo related to trauma and right shoulder sprain. Patient will be discharged with a follow up from PCP in 3 days. The patient is agreeable with this plan. - Diagnoses Provider Diagnoses: Concussion Discharge - Discharge Plan Condition: Fair Disposition: HOME Patient Education Materials: Concussion (ED), Benign Paroxysmal Positional Vertigo (ED) Referrals: Emily Hatfield PA [Primary Care Provider] - Additional Instructions: if symptoms persist will need repeat exam start exercises, [place] available on the internet The documentation as recorded by the Moisés rodriguez Jason accurately reflects the service I personally performed and the decisions made by me, Kyle Cantor MD.
== END 2017-02-10 20:32 | disposition home or self-care (01) ==
LOC: ED 18:01
DX: S06.0X9A Concussion with loss of consciousness of unspecified duration, initial encounter (principal); R42 Dizziness and giddiness; K08.89 Other specified disorders of teeth and supporting structures; M54.2 Cervicalgia; F17.210 Nicotine dependence, cigarettes, uncomplicated; W19.XXXA Unspecified fall, initial encounter; Y93.9 Activity, unspecified; Y92.9 Unspecified place or not applicable
CPT/HCPCS: 36415; 70450; 70486; 72125; 80053; 85025; 99282; A9270-GY

== ENCOUNTER 2017-02-12 10:32 | Emergency (ER) | payer BC ==
[2017-02-12] MEDS ORDERED: NS 0.9% 1000 ML* 1,000 ML IV ONE (10:51)
[2017-02-12] MEDS ORDERED: Ondansetron INJ* 2 MG/ML VIAL IV ONE (10:52)
[2017-02-12] MEDS ORDERED: Ketorolac INJ* 30 MG/ML 1 ML VIAL IV ONE (10:52)
--- NOTE | 2017-02-12 11:16 | RAD ---
INDICATION: Seizures COMPARISON: None TECHNIQUE: Noncontrast axial source images were acquired from the skull base to the vertex. FINDINGS: Ventricles/sulci: The ventricles and cisterns are normal in size and configuration for age. Brain parenchyma: There is no focal parenchymal finding, evidence of intracranial mass, or intracranial mass effect. Intracranial hemorrhage:None. Extra-axial spaces: There are no abnormal extra axial fluid collections or evidence of extra-axial mass. Calvarium: There is no calvarial fracture or other calvarial abnormality. Scalp: There is no evidence of scalp or extracalvarial soft tissue abnormality. Paranasal sinuses/mastoid: There is opacification of one of the left sphenoid air cells The paranasal sinuses and mastoid air cells are otherwise clear. Other: None. IMPRESSION: Sphenoid sinus disease, otherwise negative
[2017-02-12 11:49] LABS: Add Diff/Slide Review? Slide Review Added; Comments Flag Yes; Hematocrit 45 % (42-52); Hemoglobin 15.2 g/dl (14.0-18.0); Mean Corpuscular HGB Conc 34 g/dl (31-36); Mean Corpuscular Hemoglobin 30 pg (27-31); Mean Corpuscular Volume 89 fL (80-94); Mean Platelet Volume 9 um3 (7.4-10.4); Red Blood Count 5.09 10^6/ul (4.0-5.4); Red Cell Distribution Width 14 % (10.5-15); White Blood Count 4.7 10^3/ul (3.5-10.8)
[2017-02-12 12:05] LABS: Albumin 3.9 g/dL (3.2-5.2); Calcium 9.2 mg/dL (8.6-10.3); EGFR African American 112.8 (>60); EGFR Non-African American 87.7 (>60); Globulin 2.6 g/dL (2-4); Magnesium 2.1 mg/dL (1.9-2.7); Total Bilirubin 0.2 mg/dL (0.2-1.0); Total Protein 6.5 g/dL (6.4-8.9)
[2017-02-12 12:06] LABS: Platelet Morphology Large
[2017-02-12 12:34] VITALS: BP 113/51
[2017-02-12] MEDS ORDERED: levETIRAcetam TAB* 500 MG PO ONE (13:00)
[2017-02-12 13:03] LABS: Potassium 4.1 mmol/L (3.5-5.0)
--- NOTE | 2017-02-12 16:29 | ED ---
Bhanu Mandujano SooYoung, scribed for Gee Desouza MD on 02/12/17 at 1049 . Neurological HPI - HPI Summary HPI Summary: A 32 y/o M with no PMHx sz was BIBA and presents to ED after possible sz onset approx 1000. Pt went to his bedroom to lay down, and when his walked in approx 40 secs later, pt was shaking, tensed up, unable to speak, confused. Associated sx: severe diffuse BETHEA, dizziness, vomiting 2x. Pt is fuzzy about sequence of events, he states he walked into the bedroom with a BETHEA and feeling "weird." Pt woke up with severe BETHEA and feeling confused. Denies previous episodes similar to this. Pert PMHx: pt fell down approx 5 stairs, two or three days ago, and hit the L-side of this head on the sidewalk, and knocked out two teeth. He is unsure if he had a LOC. He also has R shoulder pain due to the fall. He states he tripped over a plant that had been newly placed at the top of the stairs. Pt slept most of yesterday and also had a BETHEA. Last took Ibuprofen at 0300. - History of Current Complaint Chief Complaint: EDSeizure Stated Complaint: SEIZURE Time Seen by Provider: 02/12/17 10:34 Hx Obtained From: Patient, Family/Morphologist Onset/Duration: Sudden Onset, Resolved Associated Signs and Symptoms: Positive: Headache, Confusion, Dizziness, Seizure , Nausea/Vomiting, Trauma: Recent - fall with head injury a few days ago - Allergy/Home Medications Allergies/Adverse Reactions: Allergies Allergy/AdvReac Type Severity Reaction Status Date / Time Sulfa Antibiotics Allergy Anaphylatic Verified 07/22/16 16:30 Shock PMH/Surg Hx/FS Hx/Imm Hx Previously Healthy: No Endocrine/Hematology History: Denies: Hx Diabetes, Hx Thyroid Disease Cardiovascular History: Reports: Hx Atrial Fibrillation - Patient states had afib 2 times resolved when he stopped using alcohol Denies: Hx Hypertension Respiratory History: Denies: Hx Asthma, Hx Chronic Obstructive Pulmonary Disease (COPD) GI History: Denies: Hx Ulcer Psychiatric History: Reports: Hx Anxiety - Surgical History Surgery Procedure, Year, and Place: double mastectomy, ear tubes Infectious Disease History: Denies: Hx Clostridium Difficile, Hx Hepatitis, Hx Human Immunodeficiency Virus (HIV), Traveled Outside the [place] in Last 30 Days - Family History Known Family History: Positive: Unknown - unknown, pt is adopted., Cardiac Disease Negative: Diabetes - Social History Occupation: Employed Full-time Lives: With Family Alcohol Use: None Hx Substance Use: No Substance Use Type: Reports: None Hx Tobacco Use: Yes Smoking Status (MU): Light Every Day Tobacco Smoker Type: Cigarettes Amount Used/How Often: <1/2 PPD Review of Systems Positive: Vomiting Neurological: Other - pos: sz; confusion; dizziness Positive: Headache - severe All Other Systems Reviewed And Are Negative: Yes Physical Exam - Summary Physical Exam Summary: The patient is well-nourished in no acute distress and in no acute pain. The skin is warm and dry and skin color reflects adequate perfusion. HEENT: The head is normocephalic and atraumatic. Pt has horizontal nystagmus that fatigues in both directions. The conjunctivae are clear and without drainage. Nares are patent and without drainage. Mouth reveals moist mucous membranes and the throat is without erythema and exudate. The external ears are intact. The ear canals are patent and without drainage. The tympanic membranes are intact. Neck is supple with full range of motion and non-tender. There are no carotid bruits. There is no neck vein distension. Respiratory: Chest is non-tender. Lungs are clear to auscultation and breath sounds are symmetrical and equal. Cardiovascular: Heart is regular rate and rhythm. There is no murmur or rub auscultated. There is no peripheral edema and pulses are symmetrical and equal. Abdomen: The abdomen is soft and non-tender. There are normal bowel sounds heard in all four quadrants and there is no organomegaly palpated. Musculoskeletal: There is no back pain noted. Extremities are non-tender with full range of motion. There is good capillary refill. There is no peripheral edema or calf tenderness elicited. Neurological: Patient is alert and oriented to person, place and time. The patient has symmetrical motor strength in all four extremities. Cranial nerves are grossly intact. Deep tendon reflexes are symmetrical and equal in all four extremities. Psychiatric: The patient has an appropriate affect and does not exhibit any anxiety or depression. Triage Information Reviewed: Yes Vital Signs On Initial Exam: Initial Vitals Temp Pulse Resp BP Pulse Ox 99.1 F 84 23 131/64 99 02/12/17 10:45 02/12/17 10:45 02/12/17 10:45 02/12/17 10:45 02/12/17 10:45 Vital Signs Reviewed: Yes Diagnostics - Vital Signs Vital Signs Temp Pulse Resp BP Pulse Ox 02/12/17 12:30 13 113/51 02/12/17 12:00 19 137/62 02/12/17 11:46 17 123/60 02/12/17 11:33 99 02/12/17 11:16 87 15 98 02/12/17 10:45 99.1 F 84 23 131/64 99 - Laboratory Lab Results: Lab Results 02/12/17 02/12/17 02/12/17 Range/Units 11:39 11:39 11:39 WBC 4.7 (3.5-10.8) 10^3/ul RBC 5.09 (4.0-5.4) 10^6/ul Hgb 15.2 (14.0-18.0) g/dl Hct 45 (42-52) % MCV 89 (80-94) fL MCH 30 (27-31) pg MCHC 34 (31-36) g/dl RDW 14 (10.5-15) % Plt Count 189 (150-450) 10^3/ul MPV 9 (7.4-10.4) um3 Neut % (Auto) 56.5 (38-83) % Lymph % (Auto) 29.4 (25-47) % [place] % (Auto) 11.1 H (1-9) % Eos % (Auto) 1.6 (0-6) % Baso % (Auto) 1.4 (0-2) % Absolute Neuts (auto) 2.7 (1.5-7.7) 10^3/ul Absolute Lymphs (auto) 1.4 (1.0-4.8) 10^3/ul Absolute Monos (auto) 0.5 (0-0.8) 10^3/ul Absolute Eos (auto) 0.1 (0-0.6) 10^3/ul Absolute Basos (auto) 0.1 (0-0.2) 10^3/ul Absolute Nucleated RBC 0.01 10^3/ul Nucleated RBC % 0.1 Platelet Morphology Large Normal RBC Morphology Not Reportable INR (Anticoag Therapy) 0.74 L (0.89-1.11) Sodium 138 (133-145) mmol/L Potassium 4.1 (3.5-5.0) mmol/L Chloride 109 (101-111) mmol/L Carbon Dioxide 24 (22-32) mmol/L Anion Gap 5 (2-11) mmol/L BUN 10 (6-24) mg/dL Creatinine 1.00 (0.67-1.17) mg/dL Est GFR ( Amer) 112.8 (>60) Est GFR (Non-Af Amer) 87.7 (>60) BUN/Creatinine Ratio 10.0 (8-20) Glucose 116 H (70-100) mg/dL Lactic Acid (0.5-2.0) mmol/L Calcium 9.2 (8.6-10.3) mg/dL Magnesium 2.1 (1.9-2.7) mg/dL Total Bilirubin 0.20 (0.2-1.0) mg/dL AST 18 (13-39) U/L ALT 23 (7-52) U/L Alkaline Phosphatase 89 (34-104) U/L Total Protein 6.5 (6.4-8.9) g/dL Albumin 3.9 (3.2-5.2) g/dL Globulin 2.6 (2-4) g/dL Albumin/Globulin Ratio 1.5 (1-3) /12/ Range/Units 11:39 WBC (3.5-10.8) 10^3/ul RBC (4.0-5.4) 10^6/ul Hgb (14.0-18.0) g/dl Hct (42-52) % MCV (80-94) fL MCH (27-31) pg MCHC (31-36) g/dl RDW (10.5-15) % Plt Count (150-450) 10^3/ul MPV (7.4-10.4) um3 Neut % (Auto) (38-83) % Lymph % (Auto) (25-47) % [place] % (Auto) (1-9) % Eos % (Auto) (0-6) % Baso % (Auto) (0-2) % Absolute Neuts (auto) (1.5-7.7) 10^3/ul Absolute Lymphs (auto) (1.0-4.8) 10^3/ul Absolute Monos (auto) (0-0.8) 10^3/ul Absolute Eos (auto) (0-0.6) 10^3/ul Absolute Basos (auto) (0-0.2) 10^3/ul Absolute Nucleated RBC 10^3/ul Nucleated RBC % Platelet Morphology Normal RBC Morphology INR (Anticoag Therapy) (0.89-1.11) Sodium (133-145) mmol/L Potassium (3.5-5.0) mmol/L Chloride (101-111) mmol/L Carbon Dioxide (22-32) mmol/L Anion Gap (2-11) mmol/L BUN (6-24) mg/dL Creatinine (0.67-1.17) mg/dL Est GFR ( Amer) (>60) Est GFR (Non-Af Amer) (>60) BUN/Creatinine Ratio (8-20) Glucose (70-100) mg/dL Lactic Acid 1.7 (0.5-2.0) mmol/L Calcium (8.6-10.3) mg/dL Magnesium (1.9-2.7) mg/dL Total Bilirubin (0.2-1.0) mg/dL AST (13-39) U/L ALT (7-52) U/L Alkaline Phosphatase (34-104) U/L Total Protein (6.4-8.9) g/dL Albumin (3.2-5.2) g/dL Globulin (2-4) g/dL Albumin/Globulin Ratio (1-3) Result Diagrams: 02/12/17 11:39 02/12/17 11:39 Lab Statement: Any lab studies that have been ordered have been reviewed, and results considered in the medical decision making process. - CT BRAIN CT CT Interpretation: No Acute Changes - IMPRESSION: Sphenoid sinus disease, otherwise negative. ED physician has reviewed this radiology report and agrees. CT Interpretation Completed By: Radiologist Re-Evaluation - Re-Evaluation 1 Re-Evaluation Time: 13:04 Change: Improved Comment: Discussing results with pt, pt voiced understanding. Course/Dx - Course Course Of Treatment: Mr. Dee had an episode of LOC and shaking that was partially witnessed. It is unclear whether he had convulsive syncope or a seizure but he was confused after the event which may have been postictal. He had a recent concussion and a repeat CT was negative. i spoke with Dr. Hernandez who recommended starting Keppra and following him up. He was counseled not to drive until released by Dr. Hernandez. - Diagnoses Provider Diagnoses: Seizure - Physician Notifications Discussed Care Of Patient With: Edilson Hernandez - Neuro Time Discussed With Above Provider: 12:58 Instructed by Provider To: Other - Recommends Keppra, if back to baseline, pt can be dispo home Discharge - Discharge Plan Condition: Stable Disposition: HOME Prescriptions: levETIRAcetam TAB* [Keppra TAB*] 500 mg PO BID #30 tab traMADol TAB* [Ultram*] 25 mg PO Q6HR PRN #20 tab MDD 4 PRN Reason: Pain Patient Education Materials: Levetiracetam (By mouth), New-Onset Seizure in Adults (ED) Forms: *Work Release Referrals: Emily Hatfield PA [Primary Care Provider] - Edilson Hernandez MD [Medical Doctor] - As Soon As Possible (Call office tomorrow to make appt.) Additional Instructions: Follow up with Dr. Hernandez's office tomorrow morning to schedule an appointment. Please return to the ED if you experience new or worsening symptoms. The documentation as recorded by the Bhanu rodriguez SooYoung accurately reflects the service I personally performed and the decisions made by me, Gee Desouza MD.
== END 2017-02-12 14:04 | disposition home or self-care (01) ==
LOC: ED 10:32
DX: R56.9 Unspecified convulsions (principal); R55 Syncope and collapse; R11.2 Nausea with vomiting, unspecified; R42 Dizziness and giddiness; R51 Headache; R41.0 Disorientation, unspecified
CPT/HCPCS: 36415; 70450; 80053; 83605; 83735; 85025; 85610; 96374; 96375; 99283; J1885; J2405

== ENCOUNTER 2017-02-14 21:35 | Emergency (ER) | payer BC ==
[2017-02-14] MEDS ORDERED: NS 0.9% 1000 ML* 1,000 ML IV ONE (22:13)
[2017-02-14] MEDS ORDERED: levETIRAcetam TAB* 500 MG PO ONE (22:20)
[2017-02-14 22:44] LABS: Hematocrit 45 % (42-52); Hemoglobin 15.1 g/dl (14.0-18.0); Mean Corpuscular HGB Conc 33 g/dl (31-36); Mean Corpuscular Hemoglobin 30 pg (27-31); Mean Corpuscular Volume 89 fL (80-94); Mean Platelet Volume 9 um3 (7.4-10.4); Red Cell Distribution Width 14 % (10.5-15); White Blood Count 4.3 10^3/ul (3.5-10.8)
[2017-02-14 23:00] LABS: ALT 25 U/L (7-52); AST 19 U/L (13-39); Albumin 4.1 g/dL (3.2-5.2); Alkaline Phosphatase 50 U/L (34-104); Anion Gap 2 mmol/L (2-11); BUN/Creatinine Ratio 5.9 (8-20); Blood Urea Nitrogen 6 mg/dL (6-24); C Reactive Protein 1.38 mg/L (< 5.00); CO2 Carbon Dioxide 28 mmol/L (22-32); Calcium 9.2 mg/dL (8.6-10.3); Chloride 106 mmol/L (101-111); EGFR African American 111.5 (>60); EGFR Non-African American 86.7 (>60); Globulin 2.7 g/dL (2-4); Glucose 86 mg/dL (70-100); Magnesium 1.9 mg/dL (1.9-2.7); Potassium 4.5 mmol/L (3.5-5.0); Sodium 136 mmol/L (133-145); Total Protein 6.8 g/dL (6.4-8.9)
[2017-02-14 23:10] LABS: Urine Bacteria Absent (Absent); Urine Bilirubin Negative (Negative); Urine Glucose Negative (Negative); Urine Nitrite Negative (Negative)
[2017-02-14 23:15] LABS: Benzodiazepine Urine Screen Presumptive Positive (None Detect)
[2017-02-14 23:18] LABS: Acetaminophen < 15 mcg/mL; Alcohol < 10 mg/dL (<10); Salicylate < 2.50 mg/dL (<30)
[2017-02-14 23:44] VITALS: BP 125/83
--- NOTE | 2017-02-14 23:55 | ED ---
Andrew Mandujano Alfonso scribed for Peter Lopez MD on 02/14/17 at 2211 . Complex/Multi-Sys Presentation - HPI Summary HPI Summary: This patient is a 32 year old M BIBA to [facility] accompanied by family with a chief complaint of a seizure at approximately 2100 today. He states I felt weird at work and I guess I had a seizure. A few days ago he had a one minute long seizure." The patient rates the pain 9/10 in severity. Symptoms aggravated by recent stress. Symptoms alleviated by spontaneous resolution. Patient reports dizziness, nausea, myalgia, headache (like my whole head is going to explode), neck pain, and urinary incontinence. Patient denies weakness, numbness, back pain, and insomnia. He had oral surgery 4 days ago. - History Of Current Complaint Chief Complaint: EDSeizure Time Seen by Provider: 02/14/17 21:46 Hx Obtained From: Patient Onset/Duration: Sudden Onset, Resolved Timing: Constant Aggravating Factor(s): recent stress. Alleviating Factor(s): spontaneous resolution Associated Signs And Symptoms: Positive: Other - dizziness, nausea, myalgia, headache (like my whole head is going to explode), neck pain, and urinary incontinence. Patient denies weakness, numbness, back pain, and insomnia. - Allergies/Home Medications Allergies/Adverse Reactions: Allergies Allergy/AdvReac Type Severity Reaction Status Date / Time Sulfa Antibiotics Allergy Anaphylatic Verified 07/22/16 16:30 Shock PMH/Surg Hx/FS Hx/Imm Hx Endocrine/Hematology History: Denies: Hx Diabetes, Hx Thyroid Disease Cardiovascular History: Reports: Hx Atrial Fibrillation - Patient states had afib 2 times resolved when he stopped using alcohol Denies: Hx Hypertension Respiratory History: Denies: Hx Asthma, Hx Chronic Obstructive Pulmonary Disease (COPD) GI History: Denies: Hx Ulcer Psychiatric History: Reports: Hx Anxiety - Surgical History Surgery Procedure, Year, and Place: double mastectomy, ear tubes Infectious Disease History: No Infectious Disease History: Denies: Hx Clostridium Difficile, Hx Hepatitis, Hx Human Immunodeficiency Virus (HIV), Traveled Outside the [place] in Last 30 Days - Family History Known Family History: Positive: Cardiac Disease Negative: Diabetes - Social History Alcohol Use: None Hx Substance Use: No Substance Use Type: Reports: None Substance Use Comment - Amount & Last Used: \\ Hx Tobacco Use: Yes Smoking Status (MU): Light Every Day Tobacco Smoker Type: Cigarettes Amount Used/How Often: <1/2 PPD Review of Systems Positive: Nausea Positive: incontinence Positive: Myalgia, Other - neck pain; negative back pain Neurological: Other - Seizure, dizziness; negative insomnia Positive: Headache. Negative: Weakness, Numbness All Other Systems Reviewed And Are Negative: Yes Physical Exam - Summary Physical Exam Summary: General: well-appearing, no pain distress Skin: warm, color reflects adequate perfusion, dry Head: normal Eyes: EOMI, ARMANDO, 3.5 mm pupils. ENT: normal Neck: supple, nontender Respiratory: CTA, breath sounds present Cardiovascular: RRR Abdomen: soft, nontender Bowel: present Musculoskeletal: normal, strength/ROM intact Neurological: Mild generalized tremors, A&O x3 Psychological: affect/mood appropriate Triage Information Reviewed: Yes Vital Signs On Initial Exam: Initial Vitals Temp Pulse Resp BP Pulse Ox 99.2 F 70 16 125/81 100 02/14/17 21:40 02/14/17 21:40 02/14/17 21:40 02/14/17 21:40 02/14/17 21:40 Vital Signs Reviewed: Yes - [place] Coma Scale Coma Scale Total: 15 Diagnostics - Vital Signs Vital Signs Temp Pulse Resp BP Pulse Ox 02/14/17 21:40 99.2 F 70 16 125/81 100 - Laboratory Lab Results: Lab Results 02/14/17 02/14/17 02/14/17 Range/Units 22:37 22:37 22:37 WBC 4.3 (3.5-10.8) 10^3/ul RBC 5.10 (4.0-5.4) 10^6/ul Hgb 15.1 (14.0-18.0) g/dl Hct 45 (42-52) % MCV 89 (80-94) fL MCH 30 (27-31) pg MCHC 33 (31-36) g/dl RDW 14 (10.5-15) % Plt Count 213 (150-450) 10^3/ul MPV 9 (7.4-10.4) um3 Neut % (Auto) 60.4 (38-83) % Lymph % (Auto) 30.5 (25-47) % [place] % (Auto) 7.6 (1-9) % Eos % (Auto) 0.4 (0-6) % Baso % (Auto) 1.1 (0-2) % Absolute Neuts (auto) 2.6 (1.5-7.7) 10^3/ul Absolute Lymphs (auto) 1.3 (1.0-4.8) 10^3/ul Absolute Monos (auto) 0.3 (0-0.8) 10^3/ul Absolute Eos (auto) 0 (0-0.6) 10^3/ul Absolute Basos (auto) 0 (0-0.2) 10^3/ul Absolute Nucleated RBC 0 10^3/ul Nucleated RBC % 0.1 INR (Anticoag Therapy) 0.86 L (0.89-1.11) APTT 28.5 (26.0-36.3) seconds Sodium 136 (133-145) mmol/L Potassium 4.5 (3.5-5.0) mmol/L Chloride 106 (101-111) mmol/L Carbon Dioxide 28 (22-32) mmol/L Anion Gap 2 (2-11) mmol/L BUN 6 (6-24) mg/dL Creatinine 1.01 (0.67-1.17) mg/dL Est GFR ( Amer) 111.5 (>60) Est GFR (Non-Af Amer) 86.7 (>60) BUN/Creatinine Ratio 5.9 L (8-20) Glucose 86 (70-100) mg/dL Lactic Acid (0.5-2.0) mmol/L Calcium 9.2 (8.6-10.3) mg/dL Magnesium 1.9 (1.9-2.7) mg/dL Total Bilirubin 0.30 (0.2-1.0) mg/dL AST 19 (13-39) U/L ALT 25 (7-52) U/L Alkaline Phosphatase 50 (34-104) U/L C-Reactive Protein 1.38 (< 5.00) mg/L Total Protein 6.8 (6.4-8.9) g/dL Albumin 4.1 (3.2-5.2) g/dL Globulin 2.7 (2-4) g/dL Albumin/Globulin Ratio 1.5 (1-3) TSH 1.40 (0.34-5.60) mcIU/mL Urine Color Urine Appearance Urine pH (5-9) Ur Specific [place] (1.010-1.030) Urine Protein (Negative) Urine Ketones (Negative) Urine Blood (Negative) Urine Nitrate (Negative) Urine Bilirubin (Negative) Urine Urobilinogen (Negative) Ur Leukocyte Esterase (Negative) Urine WBC (Auto) (Absent) Urine RBC (Auto) (Absent) Ur Squamous Epith Cells (Absent) Urine Bacteria (Absent) Urine Glucose (Negative) Salicylates < 2.50 (<30) mg/dL Urine Opiates Screen (None Detect) Acetaminophen < 15 mcg/mL Ur Barbiturates Screen (None Detect) Ur Phencyclidine Scrn (None Detect) Ur Amphetamines Screen (None Detect) U Benzodiazepines Scrn (None Detect) Urine Cocaine Screen (None Detect) U Cannabinoids Screen (None Detect) Serum Alcohol < 10 (<10) mg/dL 02/14/17 02/14/17 02/14/17 Range/Units 22:37 22:53 22:53 WBC (3.5-10.8) 10^3/ul RBC (4.0-5.4) 10^6/ul Hgb (14.0-18.0) g/dl Hct (42-52) % MCV (80-94) fL MCH (27-31) pg MCHC (31-36) g/dl RDW (10.5-15) % Plt Count (150-450) 10^3/ul MPV (7.4-10.4) um3 Neut % (Auto) (38-83) % Lymph % (Auto) (25-47) % [place] % (Auto) (1-9) % Eos % (Auto) (0-6) % Baso % (Auto) (0-2) % Absolute Neuts (auto) (1.5-7.7) 10^3/ul Absolute Lymphs (auto) (1.0-4.8) 10^3/ul Absolute Monos (auto) (0-0.8) 10^3/ul Absolute Eos (auto) (0-0.6) 10^3/ul Absolute Basos (auto) (0-0.2) 10^3/ul Absolute Nucleated RBC 10^3/ul Nucleated RBC % INR (Anticoag Therapy) (0.89-1.11) APTT (26.0-36.3) seconds Sodium (133-145) mmol/L Potassium (3.5-5.0) mmol/L Chloride (101-111) mmol/L Carbon Dioxide (22-32) mmol/L Anion Gap (2-11) mmol/L BUN (6-24) mg/dL Creatinine (0.67-1.17) mg/dL Est GFR ( Amer) (>60) Est GFR (Non-Af Amer) (>60) BUN/Creatinine Ratio (8-20) Glucose (70-100) mg/dL Lactic Acid 0.7 (0.5-2.0) mmol/L Calcium (8.6-10.3) mg/dL Magnesium (1.9-2.7) mg/dL Total Bilirubin (0.2-1.0) mg/dL AST (13-39) U/L ALT (7-52) U/L Alkaline Phosphatase (34-104) U/L C-Reactive Protein (< 5.00) mg/L Total Protein (6.4-8.9) g/dL Albumin (3.2-5.2) g/dL Globulin (2-4) g/dL Albumin/Globulin Ratio (1-3) TSH (0.34-5.60) mcIU/mL Urine Color Yellow Urine Appearance Clear Urine pH 6.0 (5-9) Ur Specific [place] 1.017 (1.010-1.030) Urine Protein Negative (Negative) Urine Ketones Negative (Negative) Urine Blood Negative (Negative) Urine Nitrate Negative (Negative) Urine Bilirubin Negative (Negative) Urine Urobilinogen Negative (Negative) Ur Leukocyte Esterase 2+ H (Negative) Urine WBC (Auto) 2+(11-20/hpf) H (Absent) Urine RBC (Auto) Trace(0-2/hpf) (Absent) Ur Squamous Epith Cells Present H (Absent) Urine Bacteria Absent (Absent) Urine Glucose Negative (Negative) Salicylates (<30) mg/dL Urine Opiates Screen None detected (None Detect) Acetaminophen mcg/mL Ur Barbiturates Screen None detected (None Detect) Ur Phencyclidine Scrn None detected (None Detect) Ur Amphetamines Screen None detected (None Detect) U Benzodiazepines Scrn Presumptive positive H (None Detect) Urine Cocaine Screen None detected (None Detect) U Cannabinoids Screen None detected (None Detect) Serum Alcohol (<10) mg/dL Result Diagrams: 02/14/17 22:37 02/14/17 22:37 Lab Statement: Any lab studies that have been ordered have been reviewed, and results considered in the medical decision making process. Complex Multi-Symp Course/Dx Course Of Treatment: DISCUSSED WITH DR COOK. HE RECOMMENDED KEPPRA 500MG PO BID. IF NOT IMPROVED ADMIT TO HOSPITAL. IF IMPROVED DISCHARGE HOME AND F/U ON 02/17/17 SCHEDULED WITH HIM. PATIENT WILL GET A MRI AND EEG. ALL THIS AND LAB RESULTS DISCUSSED WITH PATIENT AND FAMILY. PATIENT WISHES TO GO HOME. HAS SOME DYSURIA BUT, NO OTHER SIGNS OF UTI. WILL DRINK MORE WATER AND GET REEVAL IF UTI SX WORSEN. RETURN IF WORSE. - Diagnoses Provider Diagnoses: Seizure, Pyuria - Physician Notifications Discussed Care Of Patient With: Edilson Cook Time Discussed With Above Provider: 22:05 Instructed by Provider To: Other - Consult Dr. Cook (neurologist) at 2205 who recommended 500 mg of keppra. Discharge - Discharge Plan Condition: Stable Disposition: HOME Patient Education Materials: New-Onset Seizure in Adults (ED) Referrals: Edilson Cook MD [Medical Doctor] - No Primary Care Phys,NOPCP [Primary Care Provider] - Additional Instructions: FOLLOW UP WITH NEUROLOGY, DR COOK ON 02/17/17, SCHEDULED. TAKE THE KEPPRA 500MG TWICE A DAY DIRECTED. YOUR URINE HAD SOME WHITE BLOOD CELLS IN IT WHICH COULD INDICATE INFECTION. DRINK PLENTY OF WATER AND GET RECHECKED IF THIS GETS WORSE OR YOU HAVE SIGNS OF INFECTION. RETURN TO THE EMERGENCY DEPARTMENT FOR ANY WORSENING OF YOUR CONDITION; SEIZURES , YOU FEEL ILL, FEVER, WEAKNESS, NUMBNESS OR QUESTIONS OR CONCERNS. The documentation as recorded by the Andrew rodriguez Alfonso accurately reflects the service I personally performed and the decisions made by me, Peter Lopez MD.
== END 2017-02-15 00:06 | disposition home or self-care (01) ==
LOC: ED 21:35
DX: R56.9 Unspecified convulsions (principal); N39.0 Urinary tract infection, site not specified; R42 Dizziness and giddiness; R11.0 Nausea; M79.1 Myalgia; R51 Headache; M54.2 Cervicalgia; I48.91 Unspecified atrial fibrillation; F41.9 Anxiety disorder, unspecified; Z88.2 Allergy status to sulfonamides; F17.210 Nicotine dependence, cigarettes, uncomplicated
CPT/HCPCS: 36415; 80053; 80307; 80320; 80329; 81003; 81015; 83605; 83735; 84443; 85025; 85610; 85730; 86140; 87086; 99283; G0480

== ENCOUNTER 2017-02-20 14:11 | Emergency (ER) | payer BC ==
[2017-02-20 14:44] VITALS: BP 140/78
--- NOTE | 2017-02-20 14:57 | UC ---
Knee Pain HPI - HPI Summary HPI Summary: Banged left knee on a door jam a couple of days ago contusion above left patella , hurts to keep knee straight - History of Current Complaint Hx Obtained From: Patient Onset/Duration: Sudden Onset, Lasting Days Severity Initially: Moderate Severity Currently: Mild Location Of Injury: left knee Pain Intensity: 3 Pain Scale Used: 0-10 Numeric Character: Aching Alleviating Factor(s): Rest, OTC Meds Associated Signs And Symptoms: Positive: Bruising Able to Bear Weight: Yes <Corine Mcleod - Last Filed: 02/20/17 16:47> <Isis Terrell - Last Filed: 02/20/17 17:05> - History of Current Complaint Chief Complaint: UCLowerExtremity Stated Complaint: KNEE PAIN Time Seen by Provider: 02/20/17 14:53 - Allergies/Home Medications Allergies/Adverse Reactions: Allergies Allergy/AdvReac Type Severity Reaction Status Date / Time Sulfa Antibiotics Allergy Anaphylatic Verified 02/20/17 14:45 Shock PMH/Surg Hx/FS Hx/Imm Hx Previously Healthy: No - f-m on testosterone Psychological History: Depression - Surgical History Surgical History: Yes Surgery Procedure, Year, and Place: double mastectomy, ear tubes - Family History Known Family History: Positive: None, Unknown - unknown, pt is adopted., Cardiac Disease Negative: Diabetes - Social History Occupation: Employed Full-time Lives: With Family Alcohol Use: None Substance Use Type: None Substance Use Comment - Amount & Last Used: \ Smoking Status (MU): Light Every Day Tobacco Smoker Type: Cigarettes Amount Used/How Often: <1/2 PPD Household Exposure Type: Cigarettes Cessation Counseling: Patient Advised to Stop <Corine Mcleod - Last Filed: 02/20/17 16:47> Review of Systems Constitutional: Negative Skin: Bruising - above left knee Eyes: Negative ENT: Negative Respiratory: Negative Cardiovascular: Negative Gastrointestinal: Negative Genitourinary: Negative Motor: Negative Neurovascular: Negative Musculoskeletal: Negative Neurological: Negative Psychological: Negative Is Patient Immunocompromised?: No All Other Systems Reviewed And Are Negative: Yes <Corine Mcleod - Last Filed: 02/20/17 16:47> Physical Exam Triage Information Reviewed: Yes Appearance: Well-Appearing, No Pain Distress, Well-Nourished Vital Signs: Initial Vital Signs Temp 98.3 F 02/20/17 14:41 Pulse 87 02/20/17 14:41 Resp 12 02/20/17 14:41 BP 140/78 02/20/17 14:41 Pulse Ox 100 02/20/17 14:41 Vital Signs Reviewed: Yes Eye Exam: Normal Eyes: Positive: Conjunctiva Clear ENT Exam: Normal ENT: Positive: Normal ENT inspection, Hearing grossly normal, Pharynx normal. Negative: Nasal congestion, Nasal drainage Dental Exam: Normal Neck exam: Normal Neck: Positive: Supple, Nontender Respiratory Exam: Normal Respiratory: Positive: Chest non-tender, No respiratory distress, No accessory muscle use Cardiovascular Exam: Normal Cardiovascular: Positive: RRR, Pulses Normal, Brisk Capillary Refill Musculoskeletal Exam: Normal Musculoskeletal: Positive: Strength Intact, ROM Intact, No Edema Neurological Exam: Normal Neurological: Positive: Alert Psychological Exam: Normal Skin Exam: Normal <Corine Mcleod - Last Filed: 02/20/17 16:47> Vital Signs: Initial Vital Signs Temp 98.3 F 02/20/17 14:41 Pulse 87 02/20/17 14:41 Resp 12 02/20/17 14:41 BP 140/78 02/20/17 14:41 Pulse Ox 100 02/20/17 14:41 <Isis Terrell - Last Filed: 02/20/17 17:05> Diagnostics - Radiology No standard instances Xray Interpretation: No Acute Changes Radiology Interpretation Completed By: ED Physician, Radiologist <Corine Mcleod - Last Filed: 02/20/17 16:47> Knee Pain Course/Dx - Course Course Of Treatment: andrews, ice ibuprofen follow with pcp prn - Differential Dx/Diagnosis Provider Diagnoses: left knee contusion <Corine Mcleod - Last Filed: 02/20/17 16:47> Discharge <Corine Mcleod - Last Filed: 02/20/17 16:47> <Isis Terrell - Last Filed: 02/20/17 17:05> - Discharge Plan Condition: Stable Disposition: HOME Patient Education Materials: Ibuprofen (By mouth), Contusion in Adults (ED), RICE Therapy (ED) Forms: *Work Release Referrals: [facility] [Outside] - If Needed Attestation Statement User Type: Provider - I was available for consult. This patient was seen by the ANNABELLE. The patient was not presented to, seen by, or examined by me. -Fletcher <Isis Terrell - Last Filed: 02/20/17 17:05>
--- NOTE | 2017-02-20 15:28 | RAD ---
Indication: Left knee pain. 4 views of left knee demonstrates no fracture. No other bone or joint abnormality is identified. IMPRESSION: No fracture of the left knee is noted.
== END 2017-02-20 15:55 | disposition home or self-care (01) ==
LOC: UCEAST 14:11
DX: S80.02XA Contusion of left knee, initial encounter (principal); W22.8XXA Striking against or struck by other objects, initial encounter; Y93.9 Activity, unspecified; Y92.9 Unspecified place or not applicable; Y99.9 Unspecified external cause status; Z72.0 Tobacco use
CPT/HCPCS: 99212; G0463

== ENCOUNTER 2017-05-11 14:16 | Emergency (ER) | payer BC ==
[2017-05-11 16:46] LABS: ABS Basophils 0 10^3/ul (0-0.2); ABS Eosinophils 0 10^3/ul (0-0.6); ABS Lymphocytes 1.5 10^3/ul (1.0-4.8); ABS Monocytes 0.6 10^3/ul (0-0.8); ABS Neutrophils 3.5 10^3/ul (1.5-7.7); ABS Nucleated RBC 0 10^3/ul; Eosinophil % 0.8 % (0-6); Hematocrit 51 % (42-52); Hemoglobin 17.1 g/dl (14.0-18.0); Lymphocyte % 26.8 % (25-47); Mean Corpuscular HGB Conc 34 g/dl (31-36); Mean Corpuscular Hemoglobin 30 pg (27-31); Mean Corpuscular Volume 89 fL (80-94); Mean Platelet Volume 9 um3 (7.4-10.4); Nucleated Red Blood Cells % 0; Platelet Count 223 10^3/ul (150-450); Red Cell Distribution Width 14 % (10.5-15); White Blood Count 5.6 10^3/ul (3.5-10.8)
--- NOTE | 2017-05-11 16:59 | RAD ---
HISTORY: Chest pain COMPARISONS: July 22, 2016 VIEWS: 1: frontal portable view of the chest at 4:35 PM FINDINGS: LINES AND TUBES: None. CARDIOMEDIASTINAL SILHOUETTE: The cardiomediastinal silhouette is normal for portable technique. PLEURA: The costophrenic angles are sharp. No pleural abnormalities are noted. LUNG PARENCHYMA: The lungs are clear. ABDOMEN: The upper abdomen is clear. There is no subphrenic gas. BONES AND SOFT TISSUES: No bone or soft tissue abnormalities are noted. IMPRESSION: NO ACTIVE CARDIOPULMONARY DISEASE.
[2017-05-11 17:01] LABS: EGFR Non-African American 79.4 (>60)
[2017-05-11 20:19] VITALS: BP 113/64
--- NOTE | 2017-05-11 20:58 | ED ---
Donald Mandujano Jennifer scribed for Kyle Cantor MD on 05/11/17 at 1631 . HPI Chest Pain - HPI Summary HPI Summary: The patient is a 32 year old male who presents to the ED with burning and fluttering chest pain that began last night. He explains that he thought the chest pain was anxiety so he took Xanax and fell asleep. When he woke up, he still felt the same, so he decided to come to the ED. The patient had afib once and reports that this chest pain feels similar to that episode because of the fluttering in the chest. He additional complains of sweats and shortness of breath. The patient denies vomiting, fever, and chills. He has a history of seizures and is waiting to get treated by Dr. Hernandez, neurologist. - History of Current Complaint Chief Complaint: EDChestPainROMI Hx Obtained From: Patient Onset/Duration: Started Hours Ago - began last night, Still Present Timing: Constant Initial Severity: Moderate Current Severity: Moderate Pain Intensity: 5 Pain Scale Used: 0-10 Numeric Character: Burning, Fluttering Aggravating Factor(s): Nothing Alleviating Factor(s): Nothing Associated Signs and Symptoms: Positive: Other: - Sweats, shortness of breath. NEGATIVE: vomiting, fever, and chills. - Allergy/Home Medications Allergies/Adverse Reactions: Allergies Allergy/AdvReac Type Severity Reaction Status Date / Time MS Banana [Banana] Allergy Swelling Verified 02/24/17 14:03 Of Face,Lips,& Throat MS Sulfa Antibiotics Allergy Anaphylatic Verified 02/24/17 14:02 [Sulfa Antibiotics] Shock KIWI Allergy Swelling Uncoded 02/24/17 14:03 Of Face,Lips,& Throat PMH/Surg Hx/FS Hx/Imm Hx Endocrine/Hematology History: Denies: Hx Diabetes, Hx Thyroid Disease Cardiovascular History: Reports: Hx Atrial Fibrillation - Patient states had afib 2 times resolved when he stopped using alcohol Denies: Hx Hypertension, Hx Pacemaker/ICD Respiratory History: Denies: Hx Asthma, Hx Chronic Obstructive Pulmonary Disease (COPD) GI History: Denies: Hx Ulcer Sensory History: Denies: Hx Hearing Aid Neurological History: Reports: Hx Seizures Psychiatric History: Reports: Hx Anxiety, Hx Panic Disorder - Surgical History Surgery Procedure, Year, and Place: double mastectomy, ear tubes, Infectious Disease History: No Infectious Disease History: Denies: Hx Clostridium Difficile, Hx Hepatitis, Hx Human Immunodeficiency Virus (HIV), Traveled Outside the US in Last 30 Days - Family History Known Family History: Positive: Unknown - unknown, pt is adopted., Cardiac Disease Negative: Diabetes - Social History Alcohol Use: None Hx Substance Use: No Substance Use Type: Reports: None Substance Use Comment - Amount & Last Used: \ Hx Tobacco Use: Yes Smoking Status (MU): Light Every Day Tobacco Smoker Type: Cigarettes Amount Used/How Often: <1/2 PPD Review of Systems Positive: Other - Sweats. Negative: Fever, Chills Positive: Chest Pain - Burning, fluttering Positive: Shortness Of Breath Negative: Vomiting All Other Systems Reviewed And Are Negative: Yes Physical Exam - Summary Physical Exam Summary: Appearance: Well-appearing, Well-nourished Skin: Warm, Dry, No rash Eyes: Exophthalmos. PERRL, EOMI, sclera anicteric ENT: Normal Neck: Supple, nontender Respiratory: Clear to auscultation Cardiovascular: S1, S2, no murmur, no rub, no gallop Abdomen: Soft, nontender, no organomegaly Bowel sounds: Present Musculoskeletal: Normal, Strength/ROM Intact, no edema, pulses symmetrical Neurological: Normal, A&Ox3, cranial nerves II-XII WNL, follows commands, gait not tested, sensation intact to pin and light touch Psychiatric: affect normal, behavior appropriate, dressed appropriately, judgment intact Triage Information Reviewed: Yes Vital Signs On Initial Exam: Initial Vitals Temp Pulse Resp BP Pulse Ox 98.4 F 100 17 130/86 99 05/11/17 14:28 05/11/17 14:28 05/11/17 14:28 05/11/17 14:28 05/11/17 14:28 Vital Signs Reviewed: Yes Diagnostics - Vital Signs Vital Signs Temp Pulse Resp BP Pulse Ox 05/11/17 14:28 98.4 F 100 17 130/86 99 - Laboratory Result Diagrams: 05/11/17 16:29 05/11/17 16:29 Lab Statement: Any lab studies that have been ordered have been reviewed, and results considered in the medical decision making process. - Radiology CXR Xray Interpretation: No Acute Changes - NO ACTIVE CARDIOPULMONARY DISEASE. Dr. Cantor has reviewed this report. Radiology Interpretation Completed By: Radiologist - EKG 17:55 Cardiac Rate: NL EKG Rhythm: Sinus Rhythm - 74 BPM EKG Interpretation: Early repolarization. No acute changes. 14:34 EKG Interpretation: Early repolarization. Chest Pain Course/Dx - Course Assessment/Plan: The patient is a 32 year old male who presents to the ED with burning and fluttering chest pain that began last night. Bloodwork was obtained. EKG shows sinus rhythm at 74 BPM and early repolarization. CXR shows no active cardiopulmonary disease. The patient is diagnosed with atypical chest pain and probable reflux esophagitis. The patient is instructed to follow up with primary care. - Diagnoses Provider Diagnoses: Atypical chest pain, Probable reflux esophagitis Discharge - Discharge Plan Condition: Stable Disposition: HOME Referrals: [facility] REFERRAL [Outside] Additional Instructions: Follow up with your primary care physician. RETURN TO THE EMERGENCY DEPARTMENT FOR CHANGING OR WORSENING SYMPTOMS. The documentation as recorded by the Donald rodriguez Jennifer accurately reflects the service I personally performed and the decisions made by , Kyle Cantor MD.
== END 2017-05-11 20:57 | disposition home or self-care (01) ==
LOC: ED 14:16
DX: R07.89 Other chest pain (principal); F17.210 Nicotine dependence, cigarettes, uncomplicated; Z88.2 Allergy status to sulfonamides
CPT/HCPCS: 36415; 71045; 80053; 83605; 84443; 84484; 85025; 85379; 93005; 99283

== ENCOUNTER 2017-09-30 10:15 | Emergency (ER) | payer BC ==
--- OUTSIDE RECORDS SUMMARY | 2017-09-30 10:23 | XMS REPORT ---
:1985 External Reference #:[id number] Author Organization [facility] Address [address] [place] [address] Phone [phone] Care Team Providers Name Role Phone Gary Smith M.D. Care Team Information Social Service Technician Unavailable Payers Type Date Identification Numbers Payment Provider Subscriber Commercial Policy Number: [id number] [employer] Aden Dee PayID: [id number] [address] [address] [place] [address] Problems Date Description Provider Status Onset: 02/17/2017 Seizure Edilson Hernandez M.D. Active Social History Type Date Description Comments ETOH Use Denies alcohol use Smoking Light tobacco smoker (10 or fewer cigarettes/day) Allergies, Adverse Reactions, Alerts Date Description Reaction Status Severity Comments 02/17/2017 Sulfa Antibiotics active Severe Medications Medication Date Status Form Strength Qnty SIG Indications Ordering Provider Xanax Active Tablets 2mg 1/2-1 Unknown 000 tab po bid as needed Testosterone Active Solution 200mg/ml 1ml Unknown Cypionate 000 every week Paroxetine HCL Active Tablets 20mg 2 qd Unknown 000 Lamotrigine Hx Tablets 25mg 120tab 1 po qhs R56.9 Eidlson SHai 018 - s for 1 wk Mary then 2 M.D. 018 qhs for 1 wk then 3 qhs for 1 wk then 4 qhs Carbamazepine Hx Tablets 200mg 90tabs 1 po qhs R56.9 Edilson S. 017 - for 1 wk Mary then 1 M.D. 017 bid for 1 wk then 1 in Am and 2 QHS Ibu-200 Hx Tablets 200mg 3 tab as Unknown 000 - needed. [address] 20mg 1 by Unknown 000 - mouth every 018 day Vital Signs Date Vital Result Comment 09/06/2017 Height 65 inches 5'5" Weight 210.00 lb Heart Rate 77 /min BP Systolic Sitting 126 mmHg BP Diastolic Sitting 72 mmHg Respiratory Rate 16 /min BMI (Body Mass Index) 34.9 kg/m2 06/15/2017 Height 65 inches 5'5" Weight 213.12 lb Heart Rate 78 /min BP Systolic Sitting 122 mmHg BP Diastolic Sitting 84 mmHg BMI (Body Mass Index) 35.5 kg/m2 02/17/2017 Height 65 inches 5'5" Weight 200.00 lb Heart Rate 79 /min BP Systolic Sitting 122 mmHg BP Diastolic Sitting 68 mmHg Respiratory Rate 16 /min BMI (Body Mass Index) 33.3 kg/m2 Results Description No Information Procedures Date CPT Code Description Status 02/20/2017 59991 EEG Recording Awake & Drowsy Completed Encounters Type Date Location Provider CPT E/M Dx Office Visit 06/15/2017 [facility] Edilson Hernandez, 36799 R56.9 9:45a MVirgil Office Visit 02/17/2017 Neuro[facility] Edilson Hernandez, 40040 R56.9 11:45a Lg Plan of Care Future Appointment(s):09/07/2018 2:45 pm - Edilson Hernandez M.D. at [facility] [id number]/20/2017 2:45 pm - Edilson Hernandez M.D. at [facility] Phdwyy7509/06/2017 - Edilson Hernandez M.D.R56.9 Unspecified convulsionsFollow up:1 YEARRecommendations:needs DMV form done today
[2017-09-30] MEDS ORDERED: Ondansetron INJ* 2 MG/ML VIAL IV ONE (11:25)
--- NOTE | 2017-09-30 11:29 | UC ---
UC General HPI - HPI Summary HPI Summary: pat last ate on Mon. next day started with nausea and diarrhea, yesterday saw [facility] and dx: gastroenteritis. today N/V/D persist and he has not eaten for over 48h, feeling very tired - History of Current Complaint Chief Complaint: UCAbdominalPain Stated Complaint: VOMITING ABDOMINAL COMPLAINT Time Seen by Provider: 09/30/17 11:13 Hx Obtained From: Patient Onset/Duration: Gradual Onset Timing: Constant Onset Severity: Moderate Current Severity: Moderate Pain Intensity: 8 Associated Signs & Symptoms: Positive: Diarrhea, Fever - feels feverish, Nausea , Vomiting. Negative: Abdominal Pain - Allergy/Home Medications Allergies/Adverse Reactions: Allergies Allergy/AdvReac Type Severity Reaction Status Date / Time banana Allergy Swelling Verified 09/30/17 10:27 Of Face,Lips,& Throat Sulfa (Sulfonamide Allergy Anaphylatic Verified 09/30/17 10:27 Antibiotics) Shock KIWI Allergy Swelling Uncoded 09/30/17 10:27 Of Face,Lips,& Throat PMH/Surg Hx/FS Hx/Imm Hx Previously Healthy: Yes Psychological History: Anxiety, Depression - Surgical History Surgical History: Yes Surgery Procedure, Year, and Place: double mastectomy, ear tubes, - Family History Known Family History: Positive: None, Unknown - unknown, pt is adopted., Cardiac Disease Negative: Diabetes - Social History Occupation: Employed Full-time - [employer] Lives: With Family Alcohol Use: None Substance Use Type: None Substance Use Comment - Amount & Last Used: \\ Smoking Status (MU): Light Every Day Tobacco Smoker Type: Cigarettes Amount Used/How Often: <1/2 PPD Household Exposure Type: Cigarettes Cessation Counseling: Patient Advised to Stop Review of Systems Constitutional: Chills, Fatigue Skin: Negative Respiratory: Negative Cardiovascular: Negative Gastrointestinal: Vomiting, Diarrhea, Nausea Genitourinary: Negative Neurological: Negative Psychological: Negative All Other Systems Reviewed And Are Negative: Yes Physical Exam Triage Information Reviewed: Yes Appearance: Well-Appearing, Well-Nourished, Other: - appears very fatigued Vital Signs: Initial Vital Signs Temp 98.2 F 09/30/17 10:24 Pulse 88 09/30/17 10:24 Resp 18 09/30/17 10:24 BP 124/65 09/30/17 10:24 Pulse Ox 98 09/30/17 10:24 Vital Signs Reviewed: Yes Respiratory Exam: Normal Cardiovascular Exam: Normal Abdominal Exam: Normal Abdomen Description: Positive: Nontender, No Organomegaly, Soft Bowel Sounds: Positive: Present Neurological Exam: Normal Neurological: Positive: Alert Psychological Exam: Normal Skin Exam: Normal Re-Evaluation - Re-Evaluation First Eval Change: Improved - feeling better except that "when I burp it feels like fire going up my throat" denies CP Second Eval Change: Improved - states feels "much better". currently nausea and pain free Course/Dx - Differential Dx - Multi-Symptom Differential Diagnoses: Other - gastroenteritis, food poisoning, acute abd Provider Diagnoses: gastroenteritis, dehydration Discharge - Sign-Out/Discharge Documenting (check all that apply): Discharge/Admit/Transfer - Discharge Plan Condition: Improved Disposition: HOME Prescriptions: Ondansetron ODT TAB* [Zofran 4 MG Odt TAB*] 4 mg PO Q6H PRN #12 tab.odt PRN Reason: Nausea Patient Education Materials: Gastroenteritis (ED), Dehydration (ED) Forms: *Work Release Referrals: Cinda Ivey MD [Primary Care Provider] - 2 Days (If no better) Additional Instructions: use anti-nausea prescription as directed drink clear fluids for 24-48h then slowly advance to bland foods return if your symptoms worse or change at anytime - Billing Disposition and Condition Condition: IMPROVED Disposition: Home
[2017-09-30] MEDS ORDERED: NS 0.9% 1000 ML* 1,000 ML BOLUS SCH (11:30)
[2017-09-30] MEDS ORDERED: NS 0.9% 1000 ML* 1,000 ML IV SCH (11:45)
[2017-09-30] MEDS ORDERED: Al Hydrox/Mg Hydrox/Simet LIQ* 30 ML UDC PO ONE (12:08)
[2017-09-30] MEDS ORDERED: Lidocaine 2% VISCOUS* 15 ML UDC PO ONE (12:09)
[2017-09-30 13:17] VITALS: BP 129/79
== END 2017-09-30 13:10 | disposition home or self-care (01) ==
LOC: UCEAST 10:15
DX: K52.9 Noninfective gastroenteritis and colitis, unspecified (principal); E86.0 Dehydration; Z91.018 Allergy to other foods; Z88.2 Allergy status to sulfonamides
CPT/HCPCS: 96360; 96374; 99212; A9270-GY; G0463; J2405

== ENCOUNTER 2017-10-04 20:46 | Emergency (ER) | payer BC, OTHER ==
[2017-10-04 20:59] VITALS: BP 145/75
--- NOTE | 2017-10-04 21:16 | UC ---
Abdominal Pain Male HPI - HPI Summary HPI Summary: Patient comes in accompanied by his roommate complaining of about one week of persistent nausea, vomiting and diarrhea. He was here 4 days ago with the same complaints and diagnosed with gastroenteritis and treated with Zofran which he says helps transiently. Has had fever of 100-101 the past 2 nights. Was at work this evening when he suddenly became very dizzy so decided to come in here for evaluation. He has sharp intermittent abdominal pain that he says worsens before he is about to either vomit or have a bowel movement. Appetite is down. He also reports his bowel movements are dark maroon/red in color. - History of Current Complaint Chief Complaint: UCGI Stated Complaint: DIZZINESS Time Seen by Provider: 10/04/17 20:47 Hx Obtained From: Patient Onset/Duration: Gradual Onset, Lasting Days, Still Present Timing: Constant Severity Initially: Moderate Severity Currently: Moderate Pain Intensity: 9 Pain Scale Used: 0-10 Numeric Character: Sharp Aggravating Factor(s): Nothing Alleviating Factor(s): Nothing Associated Signs And Symptoms: Positive: Fever, Dizzy, Blood in Stool, Decreased Appetite, Nausea, Vomiting, Diarrhea. Negative: Urinary Symptoms - Allergies/Home Medications Allergies/Adverse Reactions: Allergies Allergy/AdvReac Type Severity Reaction Status Date / Time banana Allergy Swelling Verified 10/04/17 20:55 Of Face,Lips,& Throat Sulfa (Sulfonamide Allergy Anaphylatic Verified 10/04/17 20:55 Antibiotics) Shock KIWI Allergy Swelling Uncoded 10/04/17 20:55 Of Face,Lips,& Throat PMH/Surg Hx/FS Hx/Imm Hx Psychological History: Anxiety - Surgical History Surgical History: Yes Surgery Procedure, Year, and Place: double mastectomy, ear tubes, - Family History Known Family History: Positive: Unknown - unknown, pt is adopted. Negative: Diabetes - Social History Alcohol Use: None Substance Use Type: None Substance Use Comment - Amount & Last Used: \ Smoking Status (MU): Light Every Day Tobacco Smoker Type: Cigarettes Amount Used/How Often: <1/2 PPD Household Exposure Type: Cigarettes Review of Systems Constitutional: Fever, Fatigue Respiratory: Negative Cardiovascular: Negative Gastrointestinal: Abdominal Pain, Vomiting, Diarrhea, Nausea Genitourinary: Negative Neurological: Other - DIZZY All Other Systems Reviewed And Are Negative: Yes Physical Exam Triage Information Reviewed: Yes Appearance: Well-Appearing, No Pain Distress, Well-Nourished Vital Signs: Initial Vital Signs Temp 98.8 F 10/04/17 20:53 Pulse 111 10/04/17 20:53 Resp 18 10/04/17 20:53 BP 145/75 10/04/17 20:53 Pulse Ox 97 10/04/17 20:53 Vital Signs Reviewed: Yes Eyes: Positive: Conjunctiva Clear ENT: Positive: Hearing grossly normal, Pharynx normal, TMs normal Neck: Positive: Supple, Nontender, No Lymphadenopathy Respiratory Exam: Normal Cardiovascular: Positive: Tachycardia Abdomen Description: Positive: Soft, Other: - TTP MID AND UPPER ABDOMEN. NO RIGIDITY. NO REBOUND.. Negative: CVA Tenderness (R), CVA Tenderness (L), Distended, Guarding Bowel Sounds: Positive: Present Musculoskeletal: Positive: No Edema Neurological: Positive: Alert Psychological: Positive: Age Appropriate Behavior Skin: Negative: rashes Abd Pain Male Course/Dx - Course Course Of Treatment: TO [facility] BY PRIVATE CAR - Differential Dx/Clinical Impression Provider Diagnoses: ABDOMINAL PAIN, N/V/D Discharge - Sign-Out/Discharge Documenting (check all that apply): Discharge/Admit/Transfer - Discharge Plan Condition: Stable Disposition: HOME Patient Education Materials: Acute Nausea and Vomiting (ED), Abdominal Pain (ED ) Referrals: Cinda Ivey MD [Primary Care Provider] - If Needed Additional Instructions: GIVEN YOUR PERSISTENT ABDOMINAL PAIN OVER THE PAST WEEK WITH NAUSEA, VOMITING AND REPORTS OF PROBABLE BLOODY DIARRHEA WITH FEVER, I RECOMMEND YOU GO DIRECTLY TO THE [facility] ED FROM HERE FOR FURTHER EVALUATION. - Billing Disposition and Condition Condition: STABLE Disposition: Home
== END 2017-10-04 21:34 | disposition home or self-care (01) ==
LOC: UCEAST 20:46
DX: R11.2 Nausea with vomiting, unspecified (principal); R19.7 Diarrhea, unspecified; R10.9 Unspecified abdominal pain; R42 Dizziness and giddiness; R50.9 Fever, unspecified; F17.210 Nicotine dependence, cigarettes, uncomplicated; K92.1 Melena; Z88.2 Allergy status to sulfonamides; Z91.018 Allergy to other foods
CPT/HCPCS: 99212; G0463

== ENCOUNTER 2017-10-04 21:48 | Emergency (ER) | payer BC, OTHER ==
[2017-10-04] MEDS ORDERED: NS 0.9% 1000 ML* 1,000 ML IV ONE ×2 (22:09→23:07)
[2017-10-04 22:26] LABS: ABS Basophils 0.1 10^3/ul (0-0.2); ABS Eosinophils 0.1 10^3/ul (0-0.6); ABS Lymphocytes 1.7 10^3/ul (1.0-4.8); ABS Monocytes 0.4 10^3/ul (0-0.8); ABS Neutrophils 3.7 10^3/ul (1.5-7.7); ABS Nucleated RBC 0 10^3/ul; Hematocrit 47 % (42-52); Hemoglobin 15.8 g/dl (14.0-18.0); Mean Corpuscular HGB Conc 34 g/dl (31-36); Mean Corpuscular Hemoglobin 30 pg (27-31); Mean Corpuscular Volume 88 fL (80-94); Mean Platelet Volume 9.3 um3 (7.4-10.4); Nucleated Red Blood Cells % 0.2; Platelet Count 208 10^3/ul (150-450); Red Blood Count 5.31 10^6/ul (4.00-5.40); Red Cell Distribution Width 14 % (10.5-15)
[2017-10-04] MEDS ORDERED: Pantoprazole IV* 40 MG IV ONE (22:29)
[2017-10-04 22:44] LABS: EGFR Non-African American 78.6 (>60)
--- NOTE | 2017-10-04 22:49 | ED ---
GI/ HPI - HPI Summary HPI Summary: 32-year-old male presents to nausea vomiting diarrhea for the past 5 days. He states he was [facility] and had a stool culture done and came back positive for salmonella. He states he had 2 episodes of bloody diarrhea. He has also had diarrhea. Has not had a normal stool in 5 days. He states his symptoms started after he ate a chicken sandwich at work. No one else is sick. No recent antibiotic use. No previous belly surgeries. Denies any cough. No sore throat. He states has been getting headaches from the vomiting. Also states that after he vomited had some blurry vision in her right eye. He states he can partially pop have his right eye out and he did such when he vomited. Since then has been having blurry vision. This is not the worst headache of his life. Headache is diffuse. His pain is in his upper abdominal region. Pain is worse before he has a bowel movement. He has been taking Zofran and barely able to keep anything down. He's been seen at urgent care multiple times to be given IV fluids. He has history of seizures. He also admits to urgency and frequency. no flank pain. - History of Current Complaint Chief Complaint: EDNauseaVomitDiarrh Time Seen by Provider: 10/04/17 22:08 Stated Complaint: VOMITTING/ GEN ILLNESS Pain Intensity: 3 - Allergy/Home Medications Allergies/Adverse Reactions: Allergies Allergy/AdvReac Type Severity Reaction Status Date / Time banana Allergy Swelling Verified 10/04/17 21:56 Of Face,Lips,& Throat Sulfa (Sulfonamide Allergy Anaphylatic Verified 10/04/17 21:56 Antibiotics) Shock KIWI Allergy Swelling Uncoded 10/04/17 21:56 Of Face,Lips,& Throat PMH/Surg Hx/FS Hx/Imm Hx Endocrine/Hematology History: Denies: Hx Diabetes, Hx Thyroid Disease Cardiovascular History: Reports: Hx Atrial Fibrillation - Patient states had afib 2 times resolved when he stopped using alcohol Denies: Hx Hypertension, Hx Pacemaker/ICD Respiratory History: Denies: Hx Asthma, Hx Chronic Obstructive Pulmonary Disease (COPD) GI History: Denies: Hx Ulcer Sensory History: Denies: Hx Hearing Aid Neurological History: Reports: Hx Seizures Psychiatric History: Reports: Hx Anxiety, Hx Panic Disorder - Surgical History Surgery Procedure, Year, and Place: double mastectomy, ear tubes, Infectious Disease History: No Infectious Disease History: Denies: Hx Clostridium Difficile, Hx Hepatitis, Hx Human Immunodeficiency Virus (HIV), Traveled Outside the [place] in Last 30 Days - Family History Known Family History: Positive: Unknown - unknown, pt is adopted. Negative: Diabetes - Social History Alcohol Use: None Hx Substance Use: No Substance Use Type: Reports: None Substance Use Comment - Amount & Last Used: \ Hx Tobacco Use: Yes Smoking Status (MU): Light Every Day Tobacco Smoker Type: Cigarettes Amount Used/How Often: <1/2 PPD Review of Systems Positive: Fever Positive: Blurred Vision - right eye Negative: Chest Pain Negative: Shortness Of Breath, Cough Positive: Abdominal Pain, Vomiting, Diarrhea, Nausea Positive: Headache All Other Systems Reviewed And Are Negative: Yes Physical Exam Triage Information Reviewed: Yes Vital Signs On Initial Exam: Initial Vitals Temp Pulse Resp BP Pulse Ox 98.4 F 96 16 120/75 97 10/04/17 21:53 10/04/17 21:53 10/04/17 21:53 10/04/17 21:53 10/04/17 21:53 Vital Signs Reviewed: Yes Appearance: Positive: Well-Appearing Skin: Positive: Warm, Dry Head/Face: Positive: Normal Head/Face Inspection Eyes: Positive: Normal, EOMI, ARMANDO, Conjunctiva Clear, Other: - normal fundoscopic exam ENT: Positive: Normal ENT inspection, Pharynx normal, TMs normal Respiratory/Lung Sounds: Positive: Clear to Auscultation, Breath Sounds Present Cardiovascular: Positive: Normal, RRR Abdomen Description: Positive: Soft, Other: - LUQ pain Bowel Sounds: Positive: Present Musculoskeletal: Positive: Normal Neurological: Positive: Sensory/Motor Intact, Alert, Oriented to Person Place, Time, CN Intact II-III Psychiatric: Positive: Normal Diagnostics - Vital Signs Vital Signs Temp Pulse Resp BP Pulse Ox 10/04/17 21:53 98.4 F 96 16 120/75 97 - Laboratory Lab Results: Lab Results 10/04/17 Range/Units 22:14 WBC 6.0 (3.5-10.8) 10^3/ul RBC 5.31 (4.00-5.40) 10^6/ul Hgb 15.8 (14.0-18.0) g/dl Hct 47 (42-52) % MCV 88 (80-94) fL MCH 30 (27-31) pg MCHC 34 (31-36) g/dl RDW 14 (10.5-15) % Plt Count 208 (150-450) 10^3/ul MPV 9.3 (7.4-10.4) um3 Neut % (Auto) 61.7 (38-83) % Lymph % (Auto) 29.0 (25-47) % Morehouse % (Auto) 7.1 H (0-7) % Eos % (Auto) 1.0 (0-6) % Baso % (Auto) 1.2 (0-2) % Absolute Neuts (auto) 3.7 (1.5-7.7) 10^3/ul Absolute Lymphs (auto) 1.7 (1.0-4.8) 10^3/ul Absolute Monos (auto) 0.4 (0-0.8) 10^3/ul Absolute Eos (auto) 0.1 (0-0.6) 10^3/ul Absolute Basos (auto) 0.1 (0-0.2) 10^3/ul Absolute Nucleated RBC 0 10^3/ul Nucleated RBC % 0.2 Result Diagrams: 10/04/17 22:14 10/04/17 22:14 Lab Statement: Any lab studies that have been ordered have been reviewed, and results considered in the medical decision making process. - CT abd CT Interpretation: No Acute Changes CT Interpretation Completed By: Radiologist Re-Evaluation - Re-Evaluation First Eval Re-Evaluation Time: 01:00 Change: Improved Comment: feeling better. pain better. GIGU Course/Dx - Course Course Of Treatment: 32-year-old male presents to nausea vomiting diarrhea for the past 5 days. He states he was seen at [facility] and had a stool culture done and came back positive for salmonella. He states he had 2 episodes of bloody diarrhea. He has also had diarrhea. Has not had a normal stool in 5 days. He states his symptoms started after he ate a chicken sandwich at work. No one else is sick. No recent antibiotic use. No previous belly surgeries. Denies any cough. No sore throat. He states has been getting headaches from the vomiting. Also states that after he vomited had some blurry vision in her right eye. He states he can partially pop have his right eye out and he did such when he vomited. Since then has been having blurry vision. This is not the worst headache of his life. Headache is diffuse. His pain is in his upper abdominal region. Pain is worse before he has a bowel movement. He has been taking Zofran and barely able to keep anything down. He's been seen at urgent care multiple times to be given IV fluids. He has history of seizures. On exam normal neuro exam. Funduscopic exam normal. Lungs clear to auscultation. Abdomen tenderness in left upper quadrant. No rebound. Labs wbc normal. electrolytes normal. crp normal. with bloody diarrhea will get CT. CT normal. urine shows uti. We'll treat with Cipro as cover Salmonella and for UTI. Gave nausea medication. Told to encourage fluids. Patient understands agrees plan. - Diagnoses Differential Diagnoses - Male: Colitis, Gastroenteritis (Bacterial), Gastroenteritis (Viral), Urinary Tract Infection Provider Diagnoses: UTI (urinary tract infection), Gastroenteritis Discharge - Sign-Out/Discharge Documenting (check all that apply): Discharge/Admit/Transfer - Discharge Plan Condition: Good Disposition: HOME Prescriptions: Ciprofloxacin TAB* [Cipro 500 MG TAB*] 500 mg PO BID #13 tab Ondansetron ODT TAB* [Zofran 4 MG Odt TAB*] 4 mg PO Q6H PRN #8 tab.odt PRN Reason: Nausea Patient Education Materials: Urinary Tract Infection in Men (ED) Forms: *Work Release Referrals: Cinda Ivey MD [Primary Care Provider] - Additional Instructions: take cipro twice a day for 7 days Can take Zofran every 6 hours as needed for nausea Drink small amounts of fluid as tolerated When able to eat follow BRAT diet: Bananas, rice, applesauce, toast Take ibuprofen or Tylenol for pain as needed every 6 hours Follow up with primary within 5 days Return to ED if develop or any new or worsening symptoms - Billing Disposition and Condition Condition: GOOD Disposition: Home
[2017-10-04] MEDS ORDERED: Ondansetron INJ* 2 MG/ML VIAL IV ONE (22:58)
[2017-10-04] MEDS ORDERED: Iohexol 300* (CONTRAST) 10 ML SDV IV ONE (23:47)
[2017-10-04 23:55] LABS: Urine Appearance Cloudy; Urine Blood Negative (Negative); Urine Color Yellow; Urine Ketones Negative (Negative); Urine Protein Negative (Negative); Urine Urobilinogen Negative (Negative)
[2017-10-05] MEDS ORDERED: Al Hydrox/Mg Hydrox/Simet LIQ* 30 ML UDC PO ONE (00:47)
[2017-10-05] MEDS ORDERED: Lidocaine 2% VISCOUS* 15 ML UDC PO ONE (00:47)
[2017-10-05] MEDS ORDERED: Ciprofloxacin TAB* 500 MG PO ONE (00:54)
[2017-10-05] MEDS ORDERED: Acetaminophen TAB* 325 MG PO ONE (00:58)
[2017-10-05 01:28] VITALS: BP 141/88
--- NOTE | 2017-10-05 07:25 | RAD ---
INDICATION: Upper abdominal pain. Diarrhea COMPARISON: None TECHNIQUE: Axial source images were obtained from the hemidiaphragms to the symphysis pubis following administration of oral and intravenous contrast. 133 mL Omnipaque 300 was utilized. Coronal and sagittal reconstructed images were acquired. Lung bases: The lung bases are clear. Liver: The liver is normal in size. There are no masses. There is no ductal dilatation. Gallbladder: There are no calcified gallstones. There is no evidence of wall thickening or pericholecystic fluid. Spleen: The spleen is normal in size. There are no masses. Pancreas: There is no focal pancreatic mass or ductal dilatation. Adrenal glands: There is no evidence of adrenal mass. Kidneys: The kidneys are normal in size and position. There are prompt nephrograms and there is prompt excretion bilaterally. There are no renal parenchymal masses. There is no evidence of nephrolithiasis. Adenopathy: There is no evidence of adenopathy by size criteria. Fluid collections: There are no free or localized fluid collections. Vessels:There are no significant atherosclerotic changes involving the aorta. There is no focal aneurysm. The iliac vessels are normal in caliber. The IVC appears normal. GI tract: There are no acute CT bowel findings. There is no obstruction. The stomach and small bowel appear normal. The lower GI tract is normal. The cecum, ileocecal valve, and terminal ileum appear normal. The appendix is visualized and appear normal. Pelvic organs: The uterus and adnexa appear normal Bladder: There are no bladder masses. Abdominal and pelvic soft tissues: The extraperitoneal abdominal and pelvic soft tissues appear normal.. Osseous structures: There are no acute osseous findings. Other: None IMPRESSION: NO ACUTE CT FINDINGS. NO MASS OR INFLAMMATORY CHANGES
--- NOTE | 2017-10-07 07:38 | ED ---
Progress - Progress Note Progress Note: Patient's final urine culture reveals 75-100,000 strep group B. He was started on ciprofloxacin to treat Salmonella GI infection as well as presumed UTI however Cipro was not effective against strep group B. Patient may continue ciprofloxacin to treat Salmonella however would add a beta lactamase antibiotic (i.e. amoxicillin) to treat strep group B in his urine. Left message to call. Re-Evaluation - Re-Evaluation First Eval Re-Evaluation Time: 01:00 Change: Improved Comment: feeling better. pain better. Course/Dx - Course Course Of Treatment: 32-year-old male presents to nausea vomiting diarrhea for the past 5 days. He states he was seen at [facility] and had a stool culture done and came back positive for salmonella. He states he had 2 episodes of bloody diarrhea. He has also had diarrhea. Has not had a normal stool in 5 days. He states his symptoms started after he ate a chicken sandwich at work. No one else is sick. No recent antibiotic use. No previous belly surgeries. Denies any cough. No sore throat. He states has been getting headaches from the vomiting. Also states that after he vomited had some blurry vision in her right eye. He states he can partially pop have his right eye out and he did such when he vomited. Since then has been having blurry vision. This is not the worst headache of his life. Headache is diffuse. His pain is in his upper abdominal region. Pain is worse before he has a bowel movement. He has been taking Zofran and barely able to keep anything down. He's been seen at urgent care multiple times to be given IV fluids. He has history of seizures. On exam normal neuro exam. Funduscopic exam normal. Lungs clear to auscultation. Abdomen tenderness in left upper quadrant. No rebound. Labs wbc normal. electrolytes normal. crp normal. with bloody diarrhea will get CT. CT normal. urine shows uti. We'll treat with Cipro as cover Salmonella and for UTI. Gave nausea medication. Told to encourage fluids. Patient understands agrees plan. - Diagnoses Provider Diagnoses: UTI (urinary tract infection), Gastroenteritis Discharge - Sign-Out/Discharge Documenting (check all that apply): Post-Discharge Follow Up - Discharge Plan Condition: Good Disposition: HOME Prescriptions: Ciprofloxacin TAB* [Cipro 500 MG TAB*] 500 mg PO BID #13 tab Ondansetron ODT TAB* [Zofran 4 MG Odt TAB*] 4 mg PO Q6H PRN #8 tab.odt PRN Reason: Nausea Patient Education Materials: Urinary Tract Infection in Men (ED) Forms: *Work Release Referrals: Cinda Ivey MD [Primary Care Provider] - Additional Instructions: take cipro twice a day for 7 days Can take Zofran every 6 hours as needed for nausea Drink small amounts of fluid as tolerated When able to eat follow BRAT diet: Bananas, rice, applesauce, toast Take ibuprofen or Tylenol for pain as needed every 6 hours Follow up with primary within 5 days Return to ED if develop or any new or worsening symptoms - Billing Disposition and Condition Condition: GOOD Disposition: Home
--- NOTE | 2017-10-08 16:55 | PN ---
Progress Note - Progress Note Date of Service: 10/04/17 Note: Pt. seen in the ER 10/04 for diarrhea and positive salmonella stool culture at urgent care. Urine culture today is growing GBS. Pt. was called yesterday by Rhea VACA, and is returning call today. Culture discussed with pt. Rx for amoxicillin sent to pharm. Pt. has a f.u with his PCP in 2 days. States diarrhea is improving.
== END 2017-10-05 01:25 | disposition home or self-care (01) ==
LOC: ED 21:48
DX: N39.0 Urinary tract infection, site not specified (principal); K52.9 Noninfective gastroenteritis and colitis, unspecified; R11.2 Nausea with vomiting, unspecified; R19.7 Diarrhea, unspecified; Z86.79 Personal history of other diseases of the circulatory system; F17.210 Nicotine dependence, cigarettes, uncomplicated; R50.9 Fever, unspecified; H53.8 Other visual disturbances; R10.9 Unspecified abdominal pain; R51 Headache
CPT/HCPCS: 36415; 74177; 80053; 81003; 81015; 83690; 85025; 86140; 87045; 87046; 87077; 87086; 87899; 96374; 96375; 99283; A9270-GY; J2405; Q9967

== ENCOUNTER 2018-02-04 10:13 | Emergency (ER) | payer SELFPAY ==
[2018-02-04] MEDS ORDERED: LORazepam INJ* 2 MG/ML 1 ML VIAL IM ONE (10:18)
--- NOTE | 2018-02-04 10:21 | UC ---
Head Injury HPI - HPI Summary HPI Summary: 33 yo female to male with active seizure. His was here being evaluated as a patient and came to the staff desk to ask for assistance as her (pt) was having a seizure. She tells me that about 1 year ago pt had a TBI and has had seizures since. Pt did not take his medication this morning. Has undergone multiple evaluations in the ED and by Neurology. She states that any minor head impact or stressful event will cause him to have a seizure the next day. He has been stable with his medication regimen of Keppra and Xanax. His last seizure was 2 months ago. says that his seizures start distally and last around 5 minutes. At time of exam pt is actively seizing and lying on his left lateral decubitus position. - History Of Current Complaint Stated Complaint: SEZIURE Time Seen by Provider: 02/04/18 10:20 Hx Obtained From: Family/Wet End Operator - Allergies/Home Medications Allergies/Adverse Reactions: Allergies Allergy/AdvReac Type Severity Reaction Status Date / Time banana Allergy Swelling Verified 02/04/18 10:28 Of Face,Lips,& Throat Sulfa (Sulfonamide Allergy Anaphylatic Verified 02/04/18 10:28 Antibiotics) Shock KIWI Allergy Swelling Uncoded 02/04/18 10:28 Of Face,Lips,& Throat PMH/Surg Hx/FS Hx/Imm Hx - Additional Past Medical History Additional PMH: TBI Seizures Anxiety - Surgical History Surgical History: Yes Surgery Procedure, Year, and Place: double mastectomy, ear tubes, - Family History Known Family History: Positive: Unknown - unknown, pt is adopted. Negative: Diabetes - Social History Occupation: Employed Full-time Lives: With Family Alcohol Use: None Substance Use Type: None Substance Use Comment - Amount & Last Used: \\ Smoking Status (MU): Light Every Day Tobacco Smoker Type: Cigarettes Amount Used/How Often: <1/2 PPD Household Exposure Type: Cigarettes Review of Systems Constitutional: Other - Active seizure Skin: Negative Respiratory: Negative Cardiovascular: Negative Gastrointestinal: Negative Musculoskeletal: Negative Neurological: Negative Psychological: Negative All Other Systems Reviewed And Are Negative: Yes Physical Exam - Summary Physical Exam Summary: GENERAL: Actively seizing - appears generalized in nature. SKIN: No rashes, sores, or open wounds. NECK: Airway patent. Pt breathing with intermittent grunting. CHEST: CTAB. No r/r/w. CV: RRR. Without m/r/g. Pulses intact. Brisk cap refill. MSK: Muscles contracted throughout. NEURO: Seizing Triage Information Reviewed: Yes Vital Signs Reviewed: Yes Head Injury Course/Dx - Course Course Of Treatment: Pt's initial seizure lasted 6 minutes. He had an episode of approx 2 min where he began to communicate via grunts to his . His indicated that pt is telling her he was going to have another seizure. Soonafter , pt began to seize. declined ambulance or going to the hospital stating that they have been through this before and "he has made me promise not to go to the hospital". Discussed with treatment options at this time and she says pt has had ativan in past with good relief. Ativan 2mg IM was administered and seizure activity stopped within the next minute. Second seizure lasted a total of 3 minutes. Pt was observed for the next 20 minutes. Remained without seizure activity and was sitting up on the stretcher talking. He was able to ambulate without assistance and said he feels better. will drive home on dc. - Differential Dx/Diagnosis Provider Diagnoses: Seizure Discharge - Sign-Out/Discharge Documenting (check all that apply): Patient Departure All imaging exams completed and their final reports reviewed: No Studies - Discharge Plan Condition: Stable Disposition: HOME Patient Education Materials: Seizures After Traumatic Brain Injury (ED) Forms: *Work Release Referrals: Cinda Ivey MD [Primary Care Provider] - Additional Instructions: If you develop a fever, shortness of breath, chest pain, new or worsening symptoms - please call your PCP or go to the ED. 1) Please take your medication as directed and follow up with your primary doctor/neurologist as scheduled 2) You were given 2mg of Ativan today in the clinic at 10:12am - Billing Disposition and Condition Condition: STABLE Disposition: Home
[2018-02-04 11:09] VITALS: BP 114/55
== END 2018-02-04 10:54 | disposition home or self-care (01) ==
LOC: UCEAST 10:13
DX: R56.9 Unspecified convulsions (principal); Z88.2 Allergy status to sulfonamides; Z91.018 Allergy to other foods; F17.210 Nicotine dependence, cigarettes, uncomplicated
CPT/HCPCS: 96372; 99211; G0463; J2060